=== PATIENT | female | born 1930 | race Caucasian/White ===

== ENCOUNTER 2016-08-14 11:14 | Emergency (ER) | payer MEDICARE, OTHER ==
[~2016-08-14] VITALS: Ht 157.5 cm; Wt 47.7 kg
[2016-08-14 11:26] VITALS: BP 143/67; PULSE 75; RESP 15; O2SAT 92
--- NOTE | 2016-08-14 11:32 | ED.REPORT ---
HPI-Extremity Problem Upper Date of Service Aug 14, 2016 ED Provider: Dr. Ochoa Correa MD An 86 year old female with a history of Raynaud's phenomenon presents to the ED complaining of left finger bluing that began a few days ago. Patient recently fell and broke her left forearm on 08/02 and has been wearing her current cast since 08/05. Associated symptoms include pain (3/10 now) and pale finger tips. She reports that the pain has been constant since splint application and not worsening. she denies pain with range of motion of her hands Just prior to discharge, the patient had a near-syncopal episode and reported feeling dizzy. Nursing Notes Stated Complaint: RIGHT HAND BROKEN Chief Complaint: Extremity Trauma Nursing Notes Reviewed: Yes Allergies: Coded Allergies: iodine (Verified Allergy, Severe, 08/14/16) ITCHY quinine (Verified Allergy, Severe, 08/14/16) INCREASED BLEEDING celecoxib (Verified Allergy, Unknown, diarrhea, 08/14/16) lorazepam (Verified Allergy, Unknown, 08/14/16) oxybutynin (Verified Allergy, Unknown, blurred vision, 08/14/16) General Time Seen by MD: 11:32 Chief Complaint Other (Left hand numbness) Hx Obtained From: Patient Arrived By: Walk-in Onset Occurred: Yesterday Symptom Duration: Since onset Caused by: Accidental Location: : Hand left Quality: Painful Severity: Current: Mild Severity: Maximum: Mild Associated with: Reports: Numb extremities Pertinent Negative: Pt denies other symptoms Recent Healthcare: Recent doctor visit, Recent hospitalization Past Medical History Past Medical History Raynaud's Phenomenon Past Surgical History Interstitial cyst removed Smoking History Unknown if Ever Smoker Social History Other Social History: Good social support, , Local resident Ambulatory Status Independent Review of Systems pt reports pale and tingling fingers Constitutional: Denies: Chills, Fever Musculoskeletal: Reports: Joint pain (left hand pain) Neurologic: Reports: Dizziness, Numbness, Syncope, Denies: Change LOC Complete sys rev & neg: except as marked. Respiratory: Denies: Shortness of breath Cardiovascular: Denies: Chest pain GI: Denies: Abdominal pain, Nausea, Vomiting Physical Exam Initial Vital Signs Vital Signs (First) Date Time Temp Pulse Resp B/P Pulse Ox O2 Delivery O2 Flow Rate FiO2 08/14/16 11:26 36.1 75 15 143/67 92 Room Air Initial VS: Reviewed Head / Eyes: Atraumatic, Normocephalic, PERRL Neck: Supple, Non-tender, Full range of motion Lower Extremities: Vascular intact, Neuro intact, No swelling, No tenderness Neurologic: Alert, Oriented, Nonfocal Psychiatric: Mood/affect normal, Behavior normal, Normal thought content General/Constitutional: Awake, Alert Respiratory / Chest: Atraumatic, Breath sounds NL, Breath sounds = bilat Cardiovascular: Heart rate NL, Regular rhythm, Heart sounds NL Wrist / Hand: Atraumatic, Neurologic intact HAND: Patient;s fingers are purple with a cap refill of 4 seconds. No pain with passive ROM Interpretation & Diagnostics Lab Results Interpretation Result Diagram: 08/14/16 1254 08/14/16 1254 Test 08/14/16 12:54 08/14/16 14:02 White Blood Count 5.0th/mm3 (3.8-10.1) Red Blood Count 3.20mil/mm3 (3.90-5.20) Hemoglobin 11.3g/dL (12.0-15.6) Hematocrit 33.1% (35.0-46.0) Mean Corpuscular Volume 103.4fL (81-100) Mean Corpuscular Hemoglobin 35.3pg (27.0-35.0) Mean Corpuscular Hemoglobin Concent 34.1% (32.0-37.0) Red Cell Distribution Width 11.7% (12.3-15.4) Platelet Count 246bil/L (150-400) Neutrophils (%) (Auto) 74.2% (40-74) Lymphocytes (%) (Auto) 11.5% (14-46) Monocytes (%) (Auto) 11.9% (4-12) Eosinophils (%) (Auto) 1.8% (0-5) Basophils (%) (Auto) 0.4% (0-3) Sodium Level 136mEq/L (134-144) Potassium Level 4.4mEq/L (3.5-5.2) Chloride Level 97mEq/L (97-108) Carbon Dioxide Level 26mmol/L (18-29) Blood Urea Nitrogen 13mg/dL (8-27) Creatinine 0.76mg/dL (0.57-1.00) Estimat Glomerular Filtration Rate 104mL/min (>59) Glucose Level 93mg/dL (60-99) Calcium Level 9.5mg/dL (8.5-10.1) Magnesium Level 2.2mg/dL (1.6-2.6) Total Bilirubin 0.2mg/dL (0.0-1.2) Aspartate Amino Transf (AST/SGOT) 26U/L (0-50) Alanine Aminotransferase (ALT/SGPT) 16U/L (0-32) Alkaline Phosphatase 84U/L (25-165) Troponin T < 0.010ug/L (0.0-0.011) Total Protein 7.3g/dL (6.4-8.4) Albumin 3.8g/dL (3.4-5.0) Hold Urine Received (Received) ECG Interpretation ECG Interpretation: Sinus Rhythm Rate 65 Time: 12:14 Interpreted by: ED physician ECG Interpretation: Sinus Rhythm Rate 72 No dynamic changes from inital EKG Time: 01:02 Interpreted by: ED physician X-Ray Chest Interpretation Chest Xray Interpretation: IMPRESSION: No acute disease. Chronic interstitial changes. Dictated by: Willard Curiel M.D. on 08/14/2016 at 13:31 Interpretation / Wet Read by: Interpret - Radiologist Procedures Splint Application - Fx Mgt Time: 11:50 Procedure Performed by: Leather Repairer Post-Procedure / Complications: Cap refill normal, Post splint vascular nl, Post splint neuro nl, Condition improved, Tolerated procedure well, Patient stable Re-Eval/Medical Decision Med Decision/Clinical Course Overall the patient's fingertips seem to respond mostly to a warm blanket applied to the hand. I think that her bleeding of her fingers is likely related to Raynaud's Phenomenon rather than compartment syndrome. With a warm blanket she has Refill less than 2 seconds and normal pink fingers. She has no pain with passive range of motion and only reports mild pain at 3 out of 10. Her cast was bivalved which may have improved as well. Immediately after having her cast bivalved she had a presyncopal episode that I think was most likely vasovagal as opposed to cardiogenic she received some normal saline and her symptoms normalized. Basic screening labs were obtained an EKG was nonischemic. She will be discharged. She recommended follow-up with her doctor for further evaluation of syncope. Return precautions given. Re-Evaluation/Progress #1: Time of Eval: 12:06 Post-Splint Evaluation: Cap refill < 2 seconds Patient Status: Condition improved Re-Evaluation/Progress Note: Patient is rechecked. Splint adjusted. Patient tolerates well. She is informed of her diagnosis. Cap refill is under 2 seconds and color improved. All of the patient's questions are addressed. She understands and agrees with the treatment plan. Re-Evaluation/Progress #2: Time of Eval: 12:09 Patient Status: Condition worsened Re-Evaluation/Progress Note: Patient is rechecked. Tech reports that the patient had a syncopal epsiode just prior to discharge. Re-Evaluation/Progress #3: Time of Eval: 13:38 Patient Status: Condition improved Re-Evaluation/Progress Note: Patient is rechecked. She reports pain in her left arm but her dizziness has been resolved. Re-Evaluation/Progress #4: Time of Eval: 14:07 Patient Status: Condition improved Re-Evaluation/Progress Note: Patient is rechecked. She passes the road test. She reports that she is feeling better. All of her questions are addressed and she agrees with the treatment plan to discharge. Counseled Regarding: Diagnosis, Need for follow-up, When/why to return to ED Discharge & Departure Impression: Primary Impression: Arm fracture Encounter type: initial encounter Fracture type: closed Laterality: left Qualified Code: S42.302A - Unspecified fracture of shaft of humerus, left arm, initial encounter for closed fracture Additional Impression: Near syncope Disposition: Home Discharge Condition All VS Reviewed: Yes Condition: Stable Patient Instructions: Arm Fracture in Adults (ED), Syncope (ED) Additional Instructions: Your cast has been lessened. We "bivalved" your cast. This seems to have improved your pain. Use a shoulder sling and follow up with orthopedics as planned. Return for worsening pain, purple or dusky looking fingers or other concerns. Referrals: Manish George MD (PCP) Scribe Attestation Portions of this note were transcribed by Ed Hammond. I, Dr. Correa personally performed the history, physical exam and medical decision-making; I reviewed and confirmed the accuracy of the information in the transcribed note. Signed by: Ed Hammond, 08/14/16, 1300. copies to: Manish George MD, Timothy S DO Aug 14, 2016 11:32 ED HAMMOND Aug 14, 2016 11:34
[2016-08-14 12:25] VITALS: BP 163/80; PULSE 66
[2016-08-14 12:27] VITALS: BP 108/64; PULSE 75
[2016-08-14] MEDS ORDERED: 0.9% Sodium Chloride 1,000 ML IV ONE (12:29)
[2016-08-14] MEDS ORDERED: Ondansetron 2 mg/mL 2 mL Inj IV PRN (12:30)
[2016-08-14 12:59] LABS: BASOPHILS % (AUTO) 0.4 % (0-3); EOSINOPHILS % (AUTO) 1.8 % (0-5); MONOCYTES % (AUTO) 11.9 % (4-12); Mean Corpuscular Hemoglobin 35.3 pg (27.0-35.0); Mean Corpuscular Volume 103.4 fL (81-100); NEUTROPHILS % (AUTO) 74.2 % (40-74); Platelet Count 246 bil/L (150-400)
--- NOTE | 2016-08-14 13:33 | DRSVH ---
PROCEDURE: X-RAY CHEST ONE VIEW, PORTABLE ([id number]) INDICATIONS: near syncope TECHNIQUE: One view of the chest was acquired. COMPARISON: None. FINDINGS: Surgical changes and devices: None. Lungs and pleura: No pleural effusions or pneumothorax. Lungs are clear. Chronic interstitial dise ase. Mediastinum: Mediastinal contours appear normal. Heart size is normal. Bones and chest wall: No suspicious bony lesions. Overlying soft tissues appear unremarkable. IMPRESSION: No acute disease. Chronic interstitial changes. Dictated by: Willard Curiel M.D. on 08/14/2016 at 13:31 Approved by: Willard Curiel M.D. on 08/14/2016 at 13:31
[2016-08-14 13:36] LABS: Magnesium 2.2 mg/dL (1.6-2.6); TROPONIN T < 0.010 ug/L (0.0-0.011)
[2016-08-14 14:37] VITALS: BP 108/64; PULSE 75; RESP 15; O2SAT 92
[2016-09-07] MEDS ORDERED: GLUC100020 PO (13:06)
[2016-09-07] MEDS ORDERED: NPR500T PO (13:06)
[2016-09-07] MEDS ORDERED: PENT100C9 PO (13:06)
[2016-09-07] MEDS ORDERED: ZOV800 PO (13:06)
[2016-09-07] MEDS ORDERED: AZU500 PO (13:06)
[2016-09-07] MEDS ORDERED: FERR240T5 PO (13:06)
[2016-09-07] MEDS ORDERED: PROP10TA8 PO (13:06)
[2016-09-07] MEDS ORDERED: CYCL5.5D OP (13:06)
[2016-09-07] MEDS ORDERED: VIT1TABL83 PO (13:06)
[2016-09-07] MEDS ORDERED: MELA1TAB10 PO (13:06)
[2016-09-07] MEDS ORDERED: FOLI1TAB18 PO (13:06)
[2016-09-07] MEDS ORDERED: CALC-722 PO (13:06)
[2016-09-07] MEDS ORDERED: MIRT15TA6 PO (13:06)
[2016-09-07] MEDS ORDERED: HYDR200T5 PO (13:06)
[2016-09-07] MEDS ORDERED: vitamin b6 (13:06)
== END 2016-08-14 14:38 | disposition home or self-care (01) ==
LOC: SED 11:14
DX: S42.302A Unspecified fracture of shaft of humerus, left arm, initial encounter for closed fracture (principal); R55 Syncope and collapse; W19.XXXA Unspecified fall, initial encounter; Y93.9 Activity, unspecified; Y92.9 Unspecified place or not applicable; Y99.9 Unspecified external cause status; Z88.8 Allergy status to other drugs, medicaments and biological substances
CPT/HCPCS: 36415; 71010; 80053; 82948; 83735; 84484; 85025; 93005; 96360; 99285; J7030

== ENCOUNTER 2016-09-10 07:28 | Day surgery (SDC) | payer MEDICARE, OTHER ==
[~2016-09-10] VITALS: Ht 157.5 cm; Wt 48.7 kg
[2016-09-10] VITALS (11 sets, daily range): BP systolic 120–156; BP diastolic 46–105; PULSE 58–98; RESP 10–20; O2SAT 93–100
[~2016-09-10 07:28] MED LIST: AZU500 PO; CALC-722 PO; CYCL5.5D OP; CeFAZolin 2 Gm/50 mL D5W IV Premix IV ONE; FERR240T5 PO; FOLI1TAB18 PO; GLUC100020 PO; HYDR200T5 PO; Lactated Ringer's 1,000 ML IV SCH; MELA1TAB10 PO; MIRT15TA6 PO; NPR500T PO; PENT100C9 PO; PROP10TA8 PO; VIT1TABL83 PO; ZOV800 PO; vitamin b6
[2016-09-10] MEDS ORDERED: Propofol 10,000 mCg/mL 20 mL Inj ONE (07:29)
[2016-09-10] MEDS ORDERED: Ondansetron 2 mg/mL 2 mL Inj ONE (07:29)
[2016-09-10] MEDS ORDERED: fentaNYL-PF 50 mCg/mL 2 mL Inj ONE (07:29)
[2016-09-10] MEDS ORDERED: Phenylephrine 10,000 mCg/mL Inj ONE (07:29)
[2016-09-10] MEDS ORDERED: Lidocaine PF 1% 30 mL Inj ONE (07:29)
[2016-09-10] MEDS ORDERED: Lactated Ringer's 1,000 ML IV ONE (08:14)
[2016-09-10] MEDS ORDERED: OXYC1TAB24 PO (08:40)
[2016-09-10] MEDS ORDERED: fentaNYL-PF 50 mCg/mL 2 mL Inj IVPUSH PRN (09:30)
[2016-09-10] MEDS ORDERED: HYDROmorphone 1 mg/mL Inj IVPUSH PRN (09:30)
[2016-09-10] MEDS ORDERED: hydrALAZINE 20 mg/mL Inj IVPUSH PRN (09:30)
[2016-09-10] MEDS ORDERED: Atropine 0.4 mg/mL Inj IVPUSH PRN (09:30)
[2016-09-10] MEDS ORDERED: MetoCLOpramide 5 mg/mL 2 mL Inj IVPUSH PRN (09:30)
[2016-09-10] MEDS ORDERED: Ondansetron 2 mg/mL 2 mL Inj IVPUSH PRN (09:30)
[2016-09-10] MEDS ORDERED: Labetalol 5 mg/mL 4 mL Inj IV PRN (09:30)
[2016-09-10] MEDS ORDERED: Lactated Ringer's 500 ML IV PRN (09:30)
[2016-09-10] MEDS ORDERED: Phenylephrine 10,000 mCg/mL Inj IVPUSH PRN (09:30)
[2016-09-10] MEDS ORDERED: Lactated Ringer's 1,000 ML IV SCH (09:30)
[2016-09-10] MEDS ORDERED: EPHEDrine Sulfate 50 mg/mL Inj IVPUSH PRN (09:30)
[2016-09-10] MEDS ORDERED: Dexamethasone 4 mg/mL Inj IVPUSH PRN (09:30)
--- NOTE | 2016-09-10 09:30 | PCM.HPANE ---
Patient Data Date of Service: Sep 10, 2016 Surgeon Admitting Provider: Attending Provider:Kenton Macedo MD Primary Care Physician:Manish George MD Other Provider:Salma Suarez Anesthesia Reason for Visit Right Wrist Ulnar Shaft Fracture Ht/WT & BMI Height (Feet): 5 Height (Inches): 2 Weight (Kilograms): 48.7 Body Mass Index 19.00 Allergies Coded Allergies: iodine (Verified Allergy, Severe, ITCHING, 09/10/16) ITCHY naproxen (Verified Allergy, Severe, SPASMS, 09/10/16) quinine (Verified Allergy, Severe, "HEMORRHAGING", 09/10/16) INCREASED BLEEDING celecoxib (Verified Allergy, Unknown, diarrhea, 08/14/16) gabapentin (Verified Allergy, Unknown, SPASM, 09/10/16) lorazepam (Verified Allergy, Unknown, UNKNOWN, 09/10/16) oxybutynin (Verified Allergy, Unknown, blurred vision, 08/14/16) primidone (Verified Allergy, Unknown, UNKNOWN, 09/10/16) Uncoded Allergies: ALENDRONATE (Allergy, Severe, THROAT SWELLING, 09/10/16) Past Anesthesia History Anesthesia History: Denies:: Abnormal Airway, Anesthesia Reactions, Difficult Intubation, Fam Anesthesia Reaction Diabetes History Hx Diabetes?: No MRSA MRSA: Yes (5-6 years ago on toe, arms) Medications Hypertension Medication: No Home Meds Incl Beta Radhika: Yes (TAKES FOR ESSENTIAL TREMORS) Date Beta Radhika Taken: Sep 09, 2016 Time Beta Radhika Taken: 1000 Reported Medications oxyCODONE-Acetaminophen 5-325 mg 1 Each Tablet1 Tab PO Q6 PRN For Pain #90 09/10/16 [vitamin b6] No Conflict [id number] Mg DAILY 09/07/16 Vit B Comp/C/FA/Iron/Vit E (Vitamin B Complex Tablet)1 Each Tablet1 Each PO DAILY 09/07/16 Sulfasalazine 500 Mg Tablet1,000 Mg PO BID 30 Days Ref 0 09/07/16 Cyclosporine (Restasis Multidose)0.05 % Drops5.5 Ml OP Q12H 09/07/16 Propranolol HCl 10 Mg [id number] Mg PO BID 90 Days Ref 0 09/07/16 Mirtazapine 15 Mg Tablet7.5 Mg PO HS Ref 0 09/07/16 Melatonin (Melatonin 1 mg Tablet)1 Each Tablet1 Mg PO HS Ref 0 09/07/16 Hydroxychloroquine Sulfate 200 Mg [id number] Mg PO DAILY 30 Days Ref 0 09/07/16 Glucosamine Sulfate 2Kcl (Glucosamine Sulfate)1,000 Mg Capsule1,000 Mg PO DAILY 09/07/16 Folic Acid 1 Mg Tablet1 Mg PO DAILY 30 Days 09/07/16 Ferrous Gluconate 240 Mg [id number] Mg PO TID Ref 0 09/07/16 Pentosan Polysulfate Sodium (Elmiron)100 Mg [id number] Mg PO TID 09/07/16 Calcium Citrate/Vitamin D3 (Calcium Cit-Vit D 250-200 Tab)1 Each Tablet2 Each PO DAILY 09/07/16 Acyclovir 800 Mg Mnx750 Mg PO BID Ref 0 09/07/16 Discontinued Reported Medications Naproxen 500 Mg Bjr707 Mg PO BID PRN For Pain Ref 0 09/07/16 History History of ENT Problems?: Yes HEENT History: Positive for:: Cataracts (bilateral surgery) Dysphagia (trouble with large pills, gets food stuck occasionally) Hearing Problem Denies:: Abnormal Airway Difficult Intubation Glaucoma Sinus Problem TMJ Teeth Condition: Tooth Decay Hx of Heart Problems?: Yes Cardiovascular History: Positive for:: Irregular Heartbeat (hx of svt, ) Denies:: AICD Congestive Heart Failure Heart Murmur Hypertension Pacemaker Peripheral Vascular Rheumatic Fever Thrombophlebitis Hx of Respiratory Problem?: No Respiratory History: Positive for:: Pneumonia (remote hx of ) Denies:: Asthma COPD Emphysema Oxygen Administration Tuberculosis Use of C-PAP Machine Use of Inhalers / NEBS Hx Neurologic Problems?: Yes Neurological History: Positive for:: Headaches (migraines hx (not for some time)) Denies:: Alzheimer's Disease CVA Dementia Multiple Sclerosis Parkinson's Disease (essential tremor ) Seizures TIA Hx of GI Problems?: No Gastrointestinal History: Denies:: Diverticulitis Gall Bladder Disease Gastrointestinal Bleeding Heartburn Hepatitis Hiatal Hernia Rectal Bleeding Other GI Pertinent History: hx of irritable bowel syndrome- more constipation Hx of Problems?: Yes Genitourinary History: Denies:: Kidney Stones Urinary Tract Infection Other Pertinent History: hx of interstitial cystitis Female Hx: Positive for:: Problems with Breasts? (hx of breast cysts) Denies:: Currently (HYSTERECTOMY) Skin History: Denies:: History Skin Disorders? Pressure Ulcers Hx Musculoskeletal Problems?: Yes Musculoskeletal History: Positive for:: Musculoskeletal Trauma (right ulnar fracture current admission problem) Osteoarthritis Denies:: Back Injury Degenerative Joint Joint Replacement Myasthenia Gravis Systemic Lupus Hx of Psycho/Social Problems?: No Psycho Social History: Denies:: Anxiety Hx Depression Hx Surgeries?: Yes (hysterectomy, appy) Hx Any Other Health Problems?: Yes Other History: Positive for:: Hospitalization (anemia) Denies:: Cancer Thyroid Disease (low thyroid - not on any meds) History Blood Transfusions: Positive for:: Accept Blood Products? Blood Transfusions Denies:: Blood Transfuse Reaction Hx Diabetes: No Hx Alcohol Use: NoHx Substance Use: No Smoking Status: Unknown if Ever Smoker Have You Smoked inLast 12 mo: No Stop/Bang Treated for Sleep Apnea?: No Do You Have a CPAP Machine?: No S-Snoring: Do You Snore Loudly: No T-Tired: feel tired, fatigued: Yes O-Obsered: Observed not breath: No P-Blood Pressure: treated: No B- Body Mass Index > 35 kg/m2: No A- Age over 50: Yes N- Neck Large Circumference: No G- Gender Male: No RIMMA Total Score: 2 RIMMA Risk Assessment: Low Risk, <3 Yes Risk Assessment Category Category 1A: Patient has history of documented sleep apnea, and HAS NOT received any narcotic, sedative or anesthesia administration during this stay. Category 1B: Patient has history of documented sleep apnea, and HAS received any narcotic , sedative or anesthesia administration during this stay Category 2: Patient has SUSPECTED Obstructive Sleep Apnea, and HAS received any narcotic , sedative or anesthesia administration during this stay. Category 3: Patient has SUSPECTED Obstructive Sleep Apnea and HAS NOT received narcotic, sedative or anesthesia administration during this stay. Category 4: Outpatient in Procedural Areas with known sleep apnea or who screen positive for High Risk via the STOP/BANG questionnaire. Exam Exam Vital Signs Vital Signs Date Time Temp Pulse Resp B/P Pulse Ox O2 Delivery O2 Flow Rate FiO2 09/10/16 08:16 36.3 58 14 156/60 100 Room Air General Appearance: Alert, Oriented X3, Cooperative HEENT/AIRWAY: MP 2, Neck Movement (Full), Mouth Opening (Wide) Lungs: Clear to Auscultation, Normal Air Movement Heart: Regular Rate/Rhythm, Normal S1, Normal S2 Meds/Labs/Diagnostics Admission Meds Current Medications Lactated Ringer's (Lr) 1,000 ml @ ud STK-MED ONCE IV Last administered on t 08:14; Start 09/10/16 at 08:14; Stop 09/10/16 at 08:15; Status DC Plan Impression Patient chart reviewed, patient interviewed and anesthestic plan with risks, benefits, and alternatives discussed, and informed consent obtained. NPO Status: 0600 09/10/16 ASA Physical Status: ASA2 Mod Systemic Disease Anesthetic Plan: GA Bene/Risks/Altern/Consents: Yes HP Complete Prior to Induction: Yes Gama Callahan MD Sep 10, 2016 08:33
[2016-09-10] MEDS ORDERED: Bupivacaine-MPF 0.5% 30 mL Inj INFILTRATE ONE (12:00)
[2016-09-10] MEDS ORDERED: HYDROcodone-APAP 5-325 mg Tablet PO PRN (12:40)
--- NOTE | 2016-09-10 12:55 | PCM.ANEP1 ---
Post Anesthesia Phase 1 PACU Phase 1 Assessment Date of Service: Sep 10, 2016 Vital Signs Vital Signs Date Time Temp Pulse Resp B/P Pulse Ox O2 Delivery O2 Flow Rate FiO2 09/10/16 12:50 82 10 120/55 93 Room Air 09/10/16 12:45 85 20 134/50 94 Room Air 09/10/16 12:40 86 12 126/54 93 Room Air 09/10/16 12:36 37.3 85 17 127/105 94 Room Air 09/10/16 08:16 36.3 58 14 156/60 100 Room Air Anesthetic Administered: GA Level of Alertness: Sleepy, easy to arouse [place]ST[place]'s with Equal Strength: Yes Pain: No Nausea or Vomiting: No Oxygen Delivery: Simple Mask Lungs: Normal Air Movement Gama Callahan MD Sep 10, 2016 12:55
[2016-09-10] MEDS ORDERED: HYDROmorphone 0.5 mg/0.5 mL iSecure Syringe ONE (13:02)
--- NOTE | 2016-09-10 13:12 | PCM.ANEP2 ---
Post Anesthesia Evaluation ASA/CMS Post Anesthesia Date of Service: Sep 10, 2016 VS in Patient's Normal Range?: Yes Resp Stable; Airway Patent?: Yes CV Function & Hydration Stable: Yes Mental Status Recovered?: Yes Pain control Satisfactory?: Yes N/V Control Satisfactory?: Yes Gama Callahan MD Sep 10, 2016 13:12
--- NOTE | 2016-09-10 13:57 | DRSVH ---
PROCEDURE: X-RAY RIGHT FOREARM, TWO VIEWS ([id number]) INDICATIONS: postop TECHNIQUE: 2 views of the forearm were acquired. COMPARISON: None. FINDINGS: Bones: Improved alignment status post ORIF of distal ulnar shaft fracture. Fixation plate and screws have been placed in expected position. Soft tissues: No suspicious soft tissue calcifications or masses. IMPRESSION: Improved alignment status post ORIF of distal ulnar shaft fracture. Dictated by: Kulwinder Romero [facility] Interpreted: Leeann Faust MD on 09/10/2016 at 13:56 Transcribed by: CATHERINE on 09/10/2016 at 13:56 Approved by: Leeann Faust MD, PhD on 09/10/2016 at 16:50
--- NOTE | 2016-09-10 15:29 | OP ---
[address] [address] OPERATIVE REPORT PATIENT: DORIAN MARION : 1930 MR#: [id number] ADMIT: 09/10/2016 JOB ID: [id number] DATE OF SURGERY: 09/10/2016 PREOPERATIVE DIAGNOSIS(ES): Comminuted right distal 1/3 ulnar shaft fracture, ICD-10 code S52.251D. POSTOPERATIVE DIAGNOSIS(ES): Comminuted right distal 1/3 ulnar shaft fracture, ICD-10 code S52.251D. PROCEDURE: Open reduction and internal fixation of right distal 1/3 ulnar shaft fracture, CPT code 45881. SURGEON: Kenton Macedo MD. REFINERY OPERATOR ASSISTANT: Jose R Oliva PA-C. Jose R Oliva was an integral portion of the procedure helping with maintaining exposure and reduction of the fracture. ANESTHESIA: General. ESTIMATED BLOOD LOSS: 5 mL. DRAINS: None. TOURNIQUET: Utilized. COMPLICATIONS: None. IMPLANTS: A 2.7 mm Synthes locked plate was utilized to transfix the fracture with a combination of nonlocking and locking screws, as well as a 2.4 mm interfragmentary screw as a lag screw. SPONGE AND NEEDLE COUNT: Correct. SPECIMENS: No specimen to Pathology. INDICATIONS: This is an 86-year-old female, who slipped and fell, sustaining the above injury a few weeks prior. The fracture at that time did not really show any displacement of the fracture and only a hairline fracture. On followup films in the office, it appeared that she had a small amount of comminution at this time, and there was some mild displacement of the fracture. At that time it was decided the patient would require internal fixation. DESCRIPTION OF PROCEDURE: Under adequate general anesthetic, a well-padded tourniquet was applied to the right upper extremity. Right arm was prepped and draped in sterile fashion. After appropriate time-out was called, the arm was elevated, exsanguinated, tourniquet inflated to 250 mmHg. A longitudinal incision was carefully fashioned along the subcutaneous border of the ulna. The interval between the extensor carpi ulnaris and flexor carpi ulnaris was identified. Periosteum was elevated off the edge of the fracture. Care was taken to protect the dorsal sensory branch of the ulnar nerve. The fracture was cleaned of any fibrous tissue. It was gently reduced with a small bone-holding clamp. Utilizing a 2.4 mm screw as a lag screw, this was placed across the fracture in an oblique fashion through the plate. An 8-hole 2.7 mm locked Synthes plate was then utilized. The next screw that was placed was in a nonlocking mode, compressing the plate to the bone. One screw was placed proximal and distal in a nonlocking mode. Additional screw holes were filled with locking screws after drilling and measuring, applying the appropriate length. One of the screw holes was not able to be utilized since it was right at the fracture line, and the fracture line was visible through the hole in the plate. Image intensification confirmed good position of the plate and screws in AP and lateral views. There was a small area of comminution but the lag screw was placed through the area of comminution in a lag fashion. The wound was irrigated with saline, and skin infiltrated with 0.5% plain Marcaine. The soft tissue was closed over the plate with interrupted sutures of 3-0 Vicryl. The tourniquet was released. Minimal hemostasis required. Skin reapproximated with running subcuticular suture of 4-0 Monocryl. Mastisol and Steri-Strips were applied. The patient was placed in a well-padded short-arm fiberglass splint. The patient was taken to recovery room in stable condition. Sponge and needle count correct. No complications. PLAN: The patient will be discharged to home and be seen in the office in two weeks. At that time, the Steri-Strips will be changed, the Monocryl sutures clipped flush with the skin and the patient placed in a short-arm fiberglass cast.
== END 2016-09-10 23:59 | disposition home or self-care (01) ==
LOC: SAS 07:28
PROVIDERS: ATTEND Orthopaedic Surgery
DX: S52.251A Displaced comminuted fracture of shaft of ulna, right arm, initial encounter for closed fracture (principal); K58.9 Irritable bowel syndrome, unspecified; I73.00 Raynaud's syndrome without gangrene; K21.9 Gastro-esophageal reflux disease without esophagitis; W18.30XA Fall on same level, unspecified, initial encounter; Y93.9 Activity, unspecified; Y92.9 Unspecified place or not applicable; Y99.8 Other external cause status; Z86.14 Personal history of Methicillin resistant Staphylococcus aureus infection
CPT/HCPCS: 25545; 73090; C1713; J0690; J1170; J2370; J2405; J2765; J3010; J7120

== ENCOUNTER 2016-09-24 14:53 | Day surgery (SDC) | payer MEDICARE, OTHER ==
[2016-09-24] VITALS (9 sets, daily range): BP systolic 131–160; BP diastolic 58–73; PULSE 102–109; RESP 14–18; O2SAT 95–99
[~2016-09-24] VITALS: Ht 157.5 cm; Wt 47.7 kg
[~2016-09-24 14:53] MED LIST changes: -CeFAZolin 2 Gm/50 mL D5W IV Premix IV ONE; -Lactated Ringer's 1,000 ML IV SCH; -NPR500T PO; +OXYC1TAB24 PO
[2016-09-24] MEDS ORDERED: Propofol 10,000 mCg/mL 20 mL Inj ONE (16:19)
[2016-09-24] MEDS ORDERED: Lidocaine PF 1% 30 mL Inj ONE (16:19)
[2016-09-24] MEDS ORDERED: 0.9% Sodium Chloride 1,000 ML ONE (16:32)
[2016-09-24] MEDS ORDERED: fentaNYL-PF 50 mCg/mL 2 mL Inj IVPUSH PRN ×2 (16:35→19:15)
[2016-09-24] MEDS ORDERED: 0.9% Sodium Chloride 1,000 ML IV ONE (18:00)
[2016-09-24] MEDS ORDERED: Lactated Ringer's 1,000 ML IV SCH ×2 (18:02→19:14)
--- NOTE | 2016-09-24 18:02 | PCM.HPANE ---
Patient Data Date of Service: Sep 24, 2016 Surgeon Admitting Provider: Attending Provider:Garry Pena MD Primary Care Physician:Manish George MD Other Provider: Reason for Visit Regurgitation Ht/WT & BMI Height (Feet): 5 Height (Inches): 2 Weight (Kilograms): 47.73 Body Mass Index 19.00 Allergies Coded Allergies: iodine (Verified Allergy, Severe, ITCHING, 09/10/16) ITCHY naproxen (Verified Allergy, Severe, SPASMS, 09/10/16) quinine (Verified Allergy, Severe, "HEMORRHAGING", 09/10/16) INCREASED BLEEDING celecoxib (Verified Allergy, Unknown, diarrhea, 08/14/16) gabapentin (Verified Allergy, Unknown, SPASM, 09/10/16) lorazepam (Verified Allergy, Unknown, UNKNOWN, 09/10/16) oxybutynin (Verified Allergy, Unknown, blurred vision, 08/14/16) primidone (Verified Allergy, Unknown, UNKNOWN, 09/10/16) Uncoded Allergies: ALENDRONATE (Allergy, Severe, THROAT SWELLING, 09/10/16) OXYBUTNIN (Allergy, Unknown, 09/24/16) Past Anesthesia History Anesthesia History: Denies:: Abnormal Airway, Anesthesia Reactions, Difficult Intubation, Fam Anesthesia Reaction, Fam Malignant Hypertherm, Malignant Hyperthermia Diabetes History Hx Diabetes?: No MRSA MRSA: Yes Medications Home Meds Incl Beta Radhika: No Reported Medications oxyCODONE-Acetaminophen 5-325 mg 1 Each Tablet1 Tab PO Q6 PRN For Pain #90 09/10/16 [vitamin b6] No Conflict [id number] Mg DAILY 09/07/16 Vit B Comp/C/FA/Iron/Vit E (Vitamin B Complex Tablet)1 Each Tablet1 Each PO DAILY 09/07/16 Sulfasalazine 500 Mg Tablet1,000 Mg PO BID 30 Days Ref 0 09/07/16 Cyclosporine (Restasis Multidose)0.05 % Drops5.5 Ml OP Q12H 09/07/16 Propranolol HCl 10 Mg [id number] Mg PO BID 90 Days Ref 0 09/07/16 Mirtazapine 15 Mg Tablet7.5 Mg PO HS Ref 0 09/07/16 Melatonin (Melatonin 1 mg Tablet)1 Each Tablet1 Mg PO HS Ref 0 09/07/16 Hydroxychloroquine Sulfate 200 Mg [id number] Mg PO DAILY 30 Days Ref 0 09/07/16 Glucosamine Sulfate 2Kcl (Glucosamine Sulfate)1,000 Mg Capsule1,000 Mg PO DAILY 09/07/16 Folic Acid 1 Mg Tablet1 Mg PO DAILY 30 Days 09/07/16 Ferrous Gluconate 240 Mg [id number] Mg PO TID Ref 0 09/07/16 Pentosan Polysulfate Sodium (Elmiron)100 Mg [id number] Mg PO TID 09/07/16 Calcium Citrate/Vitamin D3 (Calcium Cit-Vit D 250-200 Tab)1 Each Tablet2 Each PO DAILY 09/07/16 Acyclovir 800 Mg [id number] Mg PO BID Ref 0 09/07/16 History History of ENT Problems?: Yes HEENT History: Positive for:: Cataracts (bilateral surgery) Dysphagia Hearing Problem Denies:: Abnormal Airway Difficult Intubation Sinus Problem TMJ Hx of Heart Problems?: Yes Cardiovascular History: Positive for:: Irregular Heartbeat (hx of svt, ) Denies:: AICD Atrial Fibrillation Chest Pain Congestive Heart Failure Heart Murmur Hypertension Pacemaker Rheumatic Fever Thrombophlebitis Valvular Heart Disease Other Cardiac History: HX OF SVT Hx of Respiratory Problem?: Yes Respiratory History: Positive for:: Pneumonia Denies:: Asthma COPD Cough Emphysema Hemoptysis Oxygen Administration Tuberculosis Use of C-PAP Machine Hx Neurologic Problems?: Yes Neurological History: Positive for:: Headaches (migraines hx (not for some time)) Denies:: Alzheimer's Disease CVA Dementia Multiple Sclerosis Parkinson's Disease (essential tremor ) Seizures Hx of GI Problems?: Yes Gastrointestinal History: Denies:: Cirrhosis Diverticulitis Gall Bladder Disease Gastroesphageal Reflux Gastrointestinal Bleeding Heartburn Hepatitis Hiatal Hernia Liver Disease Rectal Bleeding Other GI Pertinent History: HX OF WATERMELON STOMACH Hx of Problems?: Yes Genitourinary History: Denies:: Kidney Stones Urinary Tract Infection Female Hx: Positive for:: Problems with Breasts? (hx of breast cysts) Denies:: Currently Skin History: Denies:: History Skin Disorders? Pressure Ulcers Hx Musculoskeletal Problems?: Yes Musculoskeletal History: Positive for:: Musculoskeletal Trauma (right ulnar fracture current admission problem) Denies:: Back Injury Degenerative Joint Fibromyalgia Joint Replacement Systemic Lupus Hx of Psycho/Social Problems?: No Psycho Social History: Denies:: Anxiety Hx Depression Hx Surgeries?: Yes (HYSTO, R ARM FIXATION, APPY) Hx Any Other Health Problems?: Yes Other History: Positive for:: Hospitalization (anemia) Denies:: Cancer Thyroid Disease (low thyroid - not on any meds) History Blood Transfusions: Positive for:: Blood Transfusions Denies:: Blood Transfuse Reaction Hx Diabetes: No Hx Alcohol Use: NoHx Substance Use: No Smoking Status: Unknown if Ever Smoker Have You Smoked inLast 12 mo: No Stop/Bang Treated for Sleep Apnea?: No Do You Have a CPAP Machine?: No S-Snoring: Do You Snore Loudly: No T-Tired: feel tired, fatigued: No O-Obsered: Observed not breath: No P-Blood Pressure: treated: No B- Body Mass Index > 35 kg/m2: No A- Age over 50: Yes N- Neck Large Circumference: No G- Gender Male: No RIMMA Total Score: 1 RIMMA Risk Assessment: Low Risk, <3 Yes Risk Assessment Category Category 1A: Patient has history of documented sleep apnea, and HAS NOT received any narcotic, sedative or anesthesia administration during this stay. Category 1B: Patient has history of documented sleep apnea, and HAS received any narcotic , sedative or anesthesia administration during this stay Category 2: Patient has SUSPECTED Obstructive Sleep Apnea, and HAS received any narcotic , sedative or anesthesia administration during this stay. Category 3: Patient has SUSPECTED Obstructive Sleep Apnea and HAS NOT received narcotic, sedative or anesthesia administration during this stay. Category 4: Outpatient in Procedural Areas with known sleep apnea or who screen positive for High Risk via the STOP/BANG questionnaire. Exam Exam Vital Signs Vital Signs Date Time Temp Pulse Resp B/P Pulse Ox O2 Delivery O2 Flow Rate FiO2 09/24/16 16:44 36.1 109 16 140/71 98 Room Air 09/24/16 15:20 36.1 109 16 140/71 98 Room Air General Appearance: Alert, Oriented X3, Cooperative, No Acute Distress HEENT/AIRWAY: MP 2 Lungs: Normal Air Movement Heart: Exam Unremarkable Meds/Labs/Diagnostics Admission Meds Current Medications Sodium Chloride (Normal Saline) 1,000 ml @ ud STK-MED ONCE .ROUTE Last administered on 09/24/16t 16:54; Start 09/24/16 at 16:32; Stop 09/24/16 at 16:34 ; Status DC Plan Impression Patient chart reviewed, patient interviewed and anesthestic plan with risks, benefits, and alternatives discussed, and informed consent obtained. NPO Status: 0600 09/10/16 ASA Physical Status: ASA2 Mod Systemic Disease Anesthetic Plan: GA (at increased risk for aspiration will intubate) Bene/Risks/Altern/Consents: Yes (discussed with patient and s/o) HP Complete Prior to Induction: Yes Candido Ivory MD Sep 24, 2016 17:56
[2016-09-24] MEDS ORDERED: MetoCLOpramide 5 mg/mL 2 mL Inj IVPUSH PRN ×2 (18:05→19:15)
[2016-09-24] MEDS ORDERED: Ondansetron 2 mg/mL 2 mL Inj IVPUSH PRN ×2 (18:05→19:15)
[2016-09-24] MEDS ORDERED: Lactated Ringer's 500 ML IV PRN (19:14)
[2016-09-24] MEDS ORDERED: EPHEDrine Sulfate 50 mg/mL Inj IVPUSH PRN (19:15)
[2016-09-24] MEDS ORDERED: Phenylephrine 10,000 mCg/mL Inj IVPUSH PRN (19:15)
[2016-09-24] MEDS ORDERED: HYDROmorphone 1 mg/mL Inj IVPUSH PRN (19:15)
[2016-09-24] MEDS ORDERED: Atropine 0.4 mg/mL Inj IVPUSH PRN (19:15)
[2016-09-24] MEDS ORDERED: Labetalol 5 mg/mL 4 mL Inj IV PRN (19:15)
[2016-09-24] MEDS ORDERED: hydrALAZINE 20 mg/mL Inj IVPUSH PRN (19:15)
[2016-09-24] MEDS ORDERED: Dexamethasone 4 mg/mL Inj IVPUSH PRN (19:15)
--- NOTE | 2016-09-24 19:15 | PCM.ANEP1 ---
Post Anesthesia Phase 1 PACU Phase 1 Assessment Date of Service: Sep 24, 2016 Vital Signs Vital Signs Date Time Temp Pulse Resp B/P Pulse Ox O2 Delivery O2 Flow Rate FiO2 09/24/16 16:44 36.1 109 16 140/71 98 Room Air 09/24/16 15:20 36.1 109 16 140/71 98 Room Air Level of Alertness: Sleepy, easy to arouse Pain: No Nausea or Vomiting: No Oxygen Delivery: Simple Mask Lungs: Normal Air Movement Candido Ivory MD Sep 24, 2016 19:15
--- NOTE | 2016-09-24 19:23 | CONS ---
[address] [address] CONSULTATION REPORT PATIENT: DORIAN MARION : 1930 MR#: [id number] ADMIT: 09/24/2016 JOB ID: [id number] DATE OF SERVICE: 09/24/2016 GASTROENTEROLOGY CONSULTATION: REASON FOR CONSULTATION: Food impaction. HISTORY OF PRESENT ILLNESS: A pleasant 86-year-old female with history of Raynaud phenomenon, interstitial cyst removed in the past, with a broken left forearm on August 02, 2016, presents here for a food impaction. The patient states she ate eggs and sausage two days ago and since that point in time has been unable to swallow or eat anything. The patient states she had an EGD in the past with unknown results and had a colonoscopy five years ago which is normal. I have no records. The patient denies rectal bleeding, hematemesis, abdominal pain, change in bowel habits, or unintentional weight loss. The patient denies family history of colon cancer, inflammatory bowel disease, or celiac disease. The patient went to [facility] and was then brought to the emergency department for her food impaction and was brought here to the GI suite. PAST MEDICAL HISTORY: As stated above. PAST SURGICAL HISTORY: As stated above. MEDICATIONS: As an outpatient: Unknown. ALLERGIES: IODINE, QUINIDINE, CELECOXIB, LORAZEPAM, OXYBUTYNIN. SOCIAL HISTORY: . Local resident. Unknown for smoking, alcohol, or drugs. FAMILY HISTORY: Negative for colon cancer, inflammatory bowel disease, celiac disease. REVIEW OF SYSTEMS: The patient denies headache, blurred vision. Positive for nausea and vomiting. No chest pain, shortness of breath, abdominal pain, skin rash, or joint pain. PHYSICAL EXAMINATION: Vital signs upon presentation: Temperature 36.1, pulse 109, blood pressure 140/71, respiratory rate 16, saturating 98% on room air. General: Head: No scars. Anicteric. Throat supple. Lungs: Clear to auscultation bilaterally. Cardiovascular: Regular rhythm and rate. Abdomen: Soft, nondistended, nontender. Normal bowel sounds. Extremities: There is no cyanosis, clubbing, or edema. LABORATORY: Last set of labs done on April 06, 2016, show a white count 2.3, hemoglobin 12.5, hematocrit 37, platelet count 216. Sodium 131, potassium 4.2, chloride 92, bicarbonate 26, BUN 15, creatinine 0.7, glucose 91, calcium 9.4, magnesium 2.2, total bili 0.2. AST 30, ALT 18, alk phos 83. ASSESSMENT: An 86-year-old female with history of Raynaud phenomenon and a right forearm fracture presents here for a food impaction after eating eggs and sausage two days ago. RECOMMENDATIONS: 1. NPO. 2. Upper endoscopy for removal of food impaction to be performed today.
--- NOTE | 2016-09-24 19:34 | PCM.ANEP2 ---
Post Anesthesia Evaluation ASA/CMS Post Anesthesia Date of Service: Sep 24, 2016 VS in Patient's Normal Range?: Yes Resp Stable; Airway Patent?: Yes CV Function & Hydration Stable: Yes Mental Status Recovered?: Yes Pain control Satisfactory?: Yes N/V Control Satisfactory?: Yes Candido Ivory MD Sep 24, 2016 19:34
--- NOTE | 2016-09-24 21:00 | ENDO ---
[address] [address] ENDOSCOPY PROCEDURE PATIENT: DORIAN MARION : 1930 MR#: [id number] ADMIT: 09/24/2016 JOB ID: [id number] TYPE OF OPERATION: Esophagogastroduodenoscopy. PREOPERATIVE DIAGNOSIS: Food impaction. POSTOPERATIVE DIAGNOSIS: Food seen at 23 cm from the incisors. ANESTHESIA: Fentanyl 50 mcg IV administered. COMPLICATIONS: None. BLOOD LOSS: None. DESCRIPTION OF PROCEDURE: After risks and benefits explained to the patient, informed was obtained. After anesthesia administered, an upper endoscope was inserted into the mouth. Basically, we saw food that was only up high, seen at 23 cm from the incisors. It was decided that the procedure should be aborted. FINDINGS: Upon entering the esophagus, there was food starting at 23 cm from the incisors. At this point in time, it was decided that the procedure should be aborted and the patient should be intubated with anesthesia. IMPRESSIONS: 1. Food seen starting at 23 cm from the incisors. 2. Procedure aborted. RECOMMENDATIONS: Repeat EGD with anesthesia.
--- NOTE | 2016-09-25 05:42 | ENDO ---
[address] [address] ENDOSCOPY PROCEDURE PATIENT: DORIAN MARION : 1930 MR#: [id number] ADMIT: 09/24/2016 JOB ID: [id number] DATE OF SERVICE: 09/24/2016 TITLE OF PROCEDURE: Esophagogastroduodenoscopy with biopsy and removal of food impaction. PREOPERATIVE DIAGNOSIS: Food impaction. POSTOPERATIVE DIAGNOSES: 1. There was food seen starting at 23 cm from the incisors which was removed by [employer] and tripod in which a large sausage was seen in the lower esophagus and it was removed. 2. Benign midline ring sized stricture was seen at 30 cm from the incisors, status post biopsy. 3. Mild nonerosive gastritis. 4. 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 ANESTHESIA: Monitored anesthesia care. COMPLICATIONS: None. BLOOD LOSS: Minimal. DESCRIPTION OF PROCEDURE: After risks and benefits explained to the patient, informed consent was obtained. After anesthesia administered, upper endoscope was then inserted into the mouth, intubating the esophagus, stomach, and second portion of duodenum. Mucosa carefully examined. After the procedure done, the scope withdrawn and procedure terminated. FINDINGS: Upon entering the esophagus, there was food starting seen at 23 cm from the incisors which was all removed by [employer] and biopsy forceps. At the end of the lower esophagus, there was a large sausage that was not chewed which caused the obstruction. Also, a benign ring sized stricture was seen at 30 cm from the incisors which was biopsied. Z-line located 40 cm from incisors. Upon entering the stomach there was mild nonerosive gastritis that was seen. There was also a watermelon type appearance at the antrum. Retroflexion showed no masses on retroflexion. Duodenal bulb, first and second portions were normal. IMPRESSIONS: 1. Food seen starting at 23 cm from the incisors, removed by [employer] and tripod in which a large, uneaten sausage was seen at the distal esophagus which was removed. 2. Large ring sized stricture that was seen at 30 cm from the incisors, status post biopsy. 3. Mild nonerosive gastritis. 4. Watermelon type appearance of the antrum. RECOMMENDATION: 1. Protonix 40 mg by mouth twice a day. 2. Carafate 1 g by mouth a day. 3. Please encourage the patient to chew her food thoroughly. 4. Await biopsy results.
[2016-09-25] MEDS ORDERED: Lactated Ringer's 1,000 ML IV ONE (06:00)
--- NOTE | 2016-09-29 12:24 | PATH ---
SURGICAL PATHOLOGY Attending Physician:Garry Pena MD CASE STATUS: Signed Out PATIENT NAME: DORIAN MARION PID: [id number] : 1930 DATE COLLECTED:09/24/2016 00:00 SPECIMEN: Esophagus, Biopsy CLINICAL HISTORY: Stricture at 30 Biopsy FINAL DIAGNOSIS: ESOPHAGEAL BIOPSY AT 30 CM: SQUAMOUS EPITHELIUM WITH MARKED REACTIVE CHANGES AND CHRONIC INFLAMMATION (SEE MICROSCOPIC DESCRIPTION). ICD10 codeK20.9 NOTE: As part of a routine bottle house quality control technician, Dr. Ricco Fajardo has also reviewed this case and agrees with the diagnosis. GROSS DESCRIPTION: The specimen is received in one formalin filled container labeled with the patient's name, sublabeled "stricture at 30" and consists of 2 portions of tissue which aggregate to 0.3 x 0.3 x 0.2 CM. The specimen is entirely submitted in one cassette. 09/27/2016 DAC MICRO DESCRIPTION: Sections are from the esophagus stated to be from the 30 cm level. The sections contain squamous epithelium only with no definite submucosa identified. Multiple sections are prepared through the entire block, and they are all similar. There is marked reactive proliferation of the basilar portion of the epithelium, and in association with this there are chronic inflammatory cells within the epithelium. Again, no subepithelial tissue is identified. The changes are felt to be those of a marked reactive process with chronic inflammation, and would be consistent with chronic esophagitis; however, one cannot rule out the possibility of another process in the subepithelial region. ICD-9 CODES: CPT CODES: 1: 30727 Electronically Signed Out Wilfredo Tapia MD [facility] [address], [place] [address] Technical component performed at [facility], [address], [place], [address]
== END 2016-09-24 23:59 ==
LOC: SED 16:12 → END 16:18
PROVIDERS: ATTEND Internal Medicine Gastroenterology
DX: T18.128A Food in esophagus causing other injury, initial encounter (principal); Z53.09 Procedure and treatment not carried out because of other contraindication; K29.60 Other gastritis without bleeding; K22.2 Esophageal obstruction; X58.XXXA Exposure to other specified factors, initial encounter; Y93.89 Activity, other specified; Y92.9 Unspecified place or not applicable; Y99.9 Unspecified external cause status
CPT/HCPCS: 43239; 43247; 88305; 99153; G0500; J2250; J3010; J7030

== ENCOUNTER 2016-12-08 09:28 | Observation (INO) | payer MEDICARE, OTHER ==
[~2016-12-08] VITALS: Ht 157.5 cm; Wt 45.1 kg
[2016-12-08] VITALS (11 sets, daily range): BP systolic 109–164; BP diastolic 56–85; PULSE 84–100; RESP 13–18; O2SAT 93–100
--- NOTE | 2016-12-08 09:35 | ED.REPORT ---
HPI-General Illness Date of Service December 08, 2016 ED Provider: The patient is an 86 year old female with history if esophageal stricture with previous blockages requiring surgical intervention, and Raynaud's phenomenon, who presents to the emergency department complaining of dysphagia that began yesterday around 1200 after she took her glucosamine pill. Her symptoms have worsened since onset and since 5 PM last night she has been unable to swallow liquids. If she tries to drink anything it comes back up within 15 minutes. She also reports mild chest discomfort, nausea, and a mild headache. She had similar symptoms in September of this year. She had an EGD that showed and esophagea stricture at 30 cm. The pathology report from stricture shows chronic esophagitis. If September, initial EGD was stopped due to the level of obstuction and concern for airway compromise. Anethesthesia was asked to help with intubation prior to completing esophageal disimpaction. Nursing Notes Stated Complaint: ESLOPHAGIAL BLOCKAGE Chief Complaint: ENT & Mouth Nursing Notes Reviewed: Yes Allergies: Coded Allergies: iodine (Verified Allergy, Severe, ITCHING, 12/08/16) ITCHY naproxen (Verified Allergy, Severe, SPASMS, 12/08/16) quinine (Verified Allergy, Severe, "HEMORRHAGING", 12/08/16) INCREASED BLEEDING celecoxib (Verified Allergy, Unknown, diarrhea, 12/08/16) gabapentin (Verified Allergy, Unknown, SPASM, 12/08/16) lorazepam (Verified Allergy, Unknown, UNKNOWN, 12/08/16) oxybutynin (Verified Allergy, Unknown, blurred vision, 12/08/16) primidone (Verified Allergy, Unknown, UNKNOWN, 12/08/16) Uncoded Allergies: ALENDRONATE (Allergy, Severe, THROAT SWELLING, 09/10/16) OXYBUTNIN (Allergy, Unknown, 09/24/16) Scheduled ([vitamin b6]) 100 MG DAILY Acyclovir (Acyclovir) 800 Mg Tab 800 MG PO BID Calcium Citrate/Vitamin D3 (Calcium Cit-Vit D 250-200 Tab) 1 Each Tablet 2 EACH PO DAILY Cyclosporine (Restasis Multidose) 0.05 % Drops 5.5 ML OP Q12H Ferrous Gluconate (Ferrous Gluconate) 240 Mg Tablet 480 MG PO TID Folic Acid (Folic Acid) 1 Mg Tablet 1 MG PO DAILY Glucosamine Sulfate 2Kcl (Glucosamine Sulfate) 1,000 Mg Capsule 1,000 MG PO DAILY Hydroxychloroquine Sulfate (Hydroxychloroquine Sulfate) 200 Mg Tablet 400 MG PO DAILY Melatonin (Melatonin 1 mg Tablet) 1 Each Tablet 1 MG PO HS Mirtazapine (Mirtazapine) 15 Mg Tablet 7.5 MG PO HS Pentosan Polysulfate Sodium (Elmiron) 100 Mg Capsule 100 MG PO TID Propranolol HCl (Propranolol HCl) 10 Mg Tablet 10 MG PO BID Sulfasalazine (Sulfasalazine) 500 Mg Tablet 1,000 MG PO BID Vit B Comp/C/FA/Iron/Vit E (Vitamin B Complex Tablet) 1 Each Tablet 1 EACH PO DAILY Scheduled PRN oxyCODONE-Acetaminophen 5-325 mg (oxyCODONE-Acetaminophen 5-325 mg) 1 Each Tablet 1 TAB PO Q6 PRN PRN For Pain General Time Seen by MD: 09:34 Chief Complaint Other (esophageal blockage) Hx Obtained From: Patient Arrived By: Walk-in Sudden in Onset?: Yes Onset Occurred: 17 - 20 hours ago Symptom Duration: Since onset Quality: Painful Severity: Current: Moderate Severity: Maximum: Moderate Recent Healthcare: No recent hospitalization, Recent doctor visit Similar Sx Previous: Yes Past Medical History Past Medical History Raynaud's Phenomenon Esophageal stricture Past Surgical History Interstitial cyst removed EGD Family History Noncontributory Smoking History Unknown if Ever Smoker Social History Other Social History: Good social support, , Local resident Ambulatory Status Independent Review of Systems +esophageal blockage Full Review of Systems Cardiovascular: Reports: Chest pain GI: Reports: Dysphagia, Nausea, Vomiting Neurologic: Reports: Headache Complete sys rev & neg: except as marked. Physical Exam Vital Signs Vital Signs Date Time Temp Pulse Resp B/P Pulse Ox O2 Delivery O2 Flow Rate FiO2 12/08/16 13:36 100 13 164/74 96 Room Air 12/08/16 09:34 36.8 110 18 158/85 96 Room Air Initial VS: Reviewed Head / Eyes: Atraumatic, Normocephalic, PERRL Neck: Supple, Non-tender, Full range of motion Respiratory: Breath sounds normal, Clear to auscultation, No respiratory distress Lymphatic: No lymphadenopathy Extremities: Vascular intact, Neuro intact, No swelling, No tenderness Skin: Warm, Dry, No cyanosis Neurologic: Alert, Oriented, Nonfocal Psychiatric: Mood/affect normal, Behavior normal, Normal thought content General/Constitutional: Awake, Alert, Cooperative ENT: Atraumatic, Airway patent, Mucous membranes moist Cardiovascular: Heart rate NL, Regular rhythm, Cap refill not delayed, Peripheral circulation NL, Pulses = bilaterally Heart Sounds / Murmur: Positive: Systolic murmur present.. (IV/) Abdomen: Atraumatic, Soft, Non-tender, No guarding, No rebound, BS normoactive , No distention, No hernia, No palpable mass, No pulsatile mass Interpretation & Diagnostics Lab Results Interpretation Test 12/08/16 10:00 Hold Purple Top Tube Received (Received) Hold Blue Top Tube Received (Received) Hold Floyd Top Tube Received (Received) Hold Kwan Top Tube Received (Received) Lab Results Interpretation: inital Xray suggets impation again close to chords Re-Eval/Medical Decision Med Decision/Clinical Course Dr Alvarenga concerned with airway control and inablility to remove obstruction. Would like ENT to be involved. Will discuss with anesthesia and gen surg, ENT if needed. Anticipate EGD shortly Source of Hx: Old records Time of Eval: 11:01 Re-Evaluation/Progress Note: Discussed plan for GI consult. Consultation #1: Referral / Consult Name: Nguyễn Alvarenga MD Requested Call at: 11:01 Call Returned at: 11:43 Note: Spoke with the on-call engine head repairer. He would like a head and neck CT. We agreed to start with a soft tissue neck x-ray. Consultation #2: Referral / Consult Name: Mason Sheppard MD Consulted With: Anesthesia Call Returned at: 12:36 Note: Will help with procedure. Consultation #3: Referral / Consult Name: Bora Manning MD Consulted With: Surgeon Call Returned at: 12:44 Note: Willing to help with procedure if needed. Consultation #4: Referral / Consult Name: Burke Abarca MD Consulted With: ENT Call Returned at: 13:01 Note: There are 3 partners in the clinic today and they will be immediately available and come to the OR within a few minutes if needed. They are all aware and willing to help. Consultation #5: Referral / Consult Name: Nguyễn Alvarenga MD Call Returned at: 13:05 Directory Carrier: Requested OR Note: Discussed consults with surgery, anesthesia, and ENT. Dr. Alvarenga is willing to take the patient for surgery. Counseled Regarding: Diagnosis, Lab results, Need for admission Discharge & Departure Primary Impression: Esophageal foreign body Encounter type: initial encounter Qualified Code: T18.108A - Unspecified foreign body in esophagus causing other injury, initial encounter Additional Impression: History of esophageal stricture Disposition: ADMITTED TO HOSPITAL Discharge Condition All VS Reviewed: Yes Condition: Stable Referrals: Manish George MD (PCP) Scribe Attestation Portions of this note were transcribed by Jesi Zamora. I, Dr. Aranda personally performed the history, physical exam and medical decision-making; I reviewed and confirmed the accuracy of the information in the transcribed note. Signed by: Patsy Garcia, 12/08/2016 at 1330. copies to: Manish George MD, Shawna L MD December 08, 2016 09:35 Jesi Zamora December 08, 2016 09:45
[2016-12-08] MEDS ORDERED: 0.9% Sodium Chloride 1,000 ML IV ONE (10:40)
--- NOTE | 2016-12-08 12:20 | DRSVH ---
PROCEDURE: X-RAY NECK SOFT TISSUE ([id number]) INDICATIONS: esophageal obstruction TECHNIQUE: 2 views of the neck were acquired. COMPARISON: None. FINDINGS: Airway: The airway appears patent. Soft tissues: Prevertebral soft tissues are normal in thickness. The epiglottis and aryepiglottic f olds appear normal. No soft tissue gas. No radiopaque foreign bodies are evident. There is aortic atherosclerosis. Bones: No suspicious bony lesions. Severe degenerative changes of the cervical spine are present. There is grade 1 to grade 2 anterolisthesis of C4 on C5. Visualized cervical spine is normally align ed. IMPRESSION: 1. The airway is widely patent. No radiopaque foreign bodies are evident. 2. Severe degenerative changes of the cervical spine. Dictated by: Sandeep Stephens M.D. on 12/08/2016 at 11:16 Approved by: Sandeep Stephens M.D. on 12/08/2016 at 11:18
[2016-12-08] MEDS ORDERED: Propofol 10,000 mCg/mL 20 mL Inj ONE (13:49)
[2016-12-08] MEDS ORDERED: Succinylcholine Chloride 20 mg/mL 5 mL Inj ONE (13:49)
[2016-12-08] MEDS ORDERED: Ondansetron 2 mg/mL 2 mL Inj ONE (13:49)
--- NOTE | 2016-12-08 14:39 | PCM.HPANE ---
Patient Data Date of Service: December 08, 2016 Surgeon Admitting Provider: Attending Provider:Nguyễn Alvarenga MD Primary Care Physician:Manish George MD Other Provider: Reason for Visit Esophageal Blockage Ht/WT & BMI Height (Feet): 5 Height (Inches): 2 Weight (Kilograms): 46.82 Body Mass Index Allergies Coded Allergies: iodine (Verified Allergy, Severe, ITCHING, 12/08/16) ITCHY naproxen (Verified Allergy, Severe, SPASMS, 12/08/16) quinine (Verified Allergy, Severe, "HEMORRHAGING", 12/08/16) INCREASED BLEEDING celecoxib (Verified Allergy, Unknown, diarrhea, 12/08/16) gabapentin (Verified Allergy, Unknown, SPASM, 12/08/16) lorazepam (Verified Allergy, Unknown, UNKNOWN, 12/08/16) oxybutynin (Verified Allergy, Unknown, blurred vision, 12/08/16) primidone (Verified Allergy, Unknown, UNKNOWN, 12/08/16) Uncoded Allergies: ALENDRONATE (Allergy, Severe, THROAT SWELLING, 09/10/16) OXYBUTNIN (Allergy, Unknown, 09/24/16) Past Anesthesia History Anesthesia History: Denies:: Abnormal Airway, Anesthesia Reactions, Difficult Intubation, Fam Anesthesia Reaction, Fam Malignant Hypertherm, Malignant Hyperthermia Diabetes History Hx Diabetes?: No MRSA MRSA: Yes Medications Reported Medications oxyCODONE-Acetaminophen 5-325 mg 1 Each Tablet1 Tab PO Q6 PRN For Pain #90 09/10/16 [vitamin b6] No Conflict [id number] Mg DAILY 09/07/16 Vit B Comp/C/FA/Iron/Vit E (Vitamin B Complex Tablet)1 Each Tablet1 Each PO DAILY 09/07/16 Sulfasalazine 500 Mg Tablet1,000 Mg PO BID 30 Days Ref 0 09/07/16 Cyclosporine (Restasis Multidose)0.05 % Drops5.5 Ml OP Q12H 09/07/16 Propranolol HCl 10 Mg [id number] Mg PO BID 90 Days Ref 0 09/07/16 Mirtazapine 15 Mg Tablet7.5 Mg PO HS Ref 0 09/07/16 Melatonin (Melatonin 1 mg Tablet)1 Each Tablet1 Mg PO HS Ref 0 09/07/16 Hydroxychloroquine Sulfate 200 Mg [id number] Mg PO DAILY 30 Days Ref 0 09/07/16 Glucosamine Sulfate 2Kcl (Glucosamine Sulfate)1,000 Mg Capsule1,000 Mg PO DAILY 09/07/16 Folic Acid 1 Mg Tablet1 Mg PO DAILY 30 Days 09/07/16 Ferrous Gluconate 240 Mg [id number] Mg PO TID Ref 0 09/07/16 Pentosan Polysulfate Sodium (Elmiron)100 Mg [id number] Mg PO TID 09/07/16 Calcium Citrate/Vitamin D3 (Calcium Cit-Vit D 250-200 Tab)1 Each Tablet2 Each PO DAILY 09/07/16 Acyclovir 800 Mg [id number] Mg PO BID Ref 0 09/07/16 History History of ENT Problems?: Yes HEENT History: Positive for:: Cataracts (bilateral surgery) Dysphagia Hearing Problem Denies:: Abnormal Airway Difficult Intubation Sinus Problem TMJ Denture Type: None Teeth Condition: Tooth Decay Hx of Heart Problems?: Yes Cardiovascular History: Positive for:: Irregular Heartbeat (hx of svt, ) Denies:: AICD Atrial Fibrillation Chest Pain Congestive Heart Failure Heart Murmur Hypertension Pacemaker Rheumatic Fever Thrombophlebitis Valvular Heart Disease Hx of Respiratory Problem?: Yes Respiratory History: Positive for:: Pneumonia Denies:: Asthma COPD Cough Emphysema Hemoptysis Oxygen Administration Tuberculosis Use of C-PAP Machine Hx Neurologic Problems?: Yes Neurological History: Positive for:: Headaches (migraines hx (not for some time)) Denies:: Alzheimer's Disease CVA Dementia Multiple Sclerosis Parkinson's Disease (essential tremor ) Seizures Hx of GI Problems?: Yes Hx of Problems?: Yes Genitourinary History: Denies:: Kidney Stones Urinary Tract Infection Female Hx: Positive for:: Problems with Breasts? (hx of breast cysts) Denies:: Currently Skin History: Denies:: History Skin Disorders? Pressure Ulcers Hx Musculoskeletal Problems?: Yes Musculoskeletal History: Positive for:: Musculoskeletal Trauma (right ulnar fracture current admission problem) Denies:: Back Injury Degenerative Joint Joint Replacement Systemic Lupus Hx of Psycho/Social Problems?: No Psycho Social History: Denies:: Anxiety Hx Depression Hx Surgeries?: Yes (HYSTO, R ARM FIXATION, APPY) Hx Any Other Health Problems?: Yes Other History: Positive for:: Hospitalization (anemia) Denies:: Cancer Thyroid Disease (low thyroid - not on any meds) History Blood Transfusions: Positive for:: Blood Transfusions Denies:: Blood Transfuse Reaction Hx Diabetes: No Hx Alcohol Use: NoHx Substance Use: No Smoking Status: Unknown if Ever Smoker Have You Smoked inLast 12 mo: No Stop/Bang Treated for Sleep Apnea?: No Do You Have a CPAP Machine?: No S-Snoring: Do You Snore Loudly: No T-Tired: feel tired, fatigued: No O-Obsered: Observed not breath: No P-Blood Pressure: treated: No B- Body Mass Index > 35 kg/m2: No A- Age over 50: Yes N- Neck Large Circumference: No G- Gender Male: No RIMMA Risk Assessment: Low Risk, <3 Yes Risk Assessment Category Category 1A: Patient has history of documented sleep apnea, and HAS NOT received any narcotic, sedative or anesthesia administration during this stay. Category 1B: Patient has history of documented sleep apnea, and HAS received any narcotic , sedative or anesthesia administration during this stay Category 2: Patient has SUSPECTED Obstructive Sleep Apnea, and HAS received any narcotic , sedative or anesthesia administration during this stay. Category 3: Patient has SUSPECTED Obstructive Sleep Apnea and HAS NOT received narcotic, sedative or anesthesia administration during this stay. Category 4: Outpatient in Procedural Areas with known sleep apnea or who screen positive for High Risk via the STOP/BANG questionnaire. Exam Exam Vital Signs Vital Signs Date Time Temp Pulse Resp B/P Pulse Ox O2 Delivery O2 Flow Rate FiO2 12/08/16 13:36 100 13 164/74 96 Room Air 12/08/16 09:34 36.8 110 18 158/85 96 Room Air General Appearance: Alert, Oriented X3, Cooperative, No Acute Distress HEENT/AIRWAY: MP 2 Lungs: Clear to Auscultation, Normal Air Movement Heart: Exam Unremarkable, Regular Rate/Rhythm, No Murmurs/Rubs/Gallops Meds/Labs/Diagnostics Admission Meds Current Medications Sodium Chloride (Normal Saline) 1,000 ml @ 0 mls/hr Q0M ONCE IV Last administered on 12/08/16t 10:51; Start 12/08/16 at 10:40; Stop 12/08/16 at 10:41; Status DC Labs Test 12/08/16 10:00 Hold Purple Top Tube Received (Received) Hold Blue Top Tube Received (Received) Hold Ingalls Top Tube Received (Received) Hold Kwan Top Tube Received (Received) Plan Impression Patient chart reviewed, patient interviewed and anesthestic plan with risks, benefits, and alternatives discussed, and informed consent obtained. ASA Physical Status: ASA2 Mod Systemic Disease Anesthetic Plan: GA Bene/Risks/Altern/Consents: Yes HP Complete Prior to Induction: Yes Jon Pringle MD December 08, 2016 14:39
--- NOTE | 2016-12-08 17:04 | PCM.ENDEGD ---
EGD Date of Service: December 08, 2016 Physician Nguyễn Alvarenga MD Pre Procedure Diagnosis: Food impaction Post Procedure Dx & Findings: Successful food disimpaction Procedure Esophagogastroduodenoscopy PROCEDURE IN DETAIL: After proper sedation, Olympus video endoscope was inserted into patient's mouth and esophagus was successfully intubated. Scope introduced esophagus. As soon as we entered the esophagus, patient had food material. We insufflated to see if there was any room to maneuver the scope around and there was limited room. We started to use the net to pick the food apart and retrieved the food material piece by piece. We used 5 nets. Rocael and rat tooth forcepts used as well. We try water to break the fluid which we did. In between the endoscope intubation, we had to use OG tube for suctioning to get the water and small pieces of food out of the way. Eventually got to a mucosal narrowing around 40 cm from the incisors. Using a rat-tooth forcep, we started breaking this food piece by piece. There was a hiatal hernia 4 cm to 5 cm and after breaking the food apart, we injected water and the food probe and the food material within its the stomach. No ulcerations nor bleeding no mucosal tear noted. The mucosa was overall intact. We entered the stomach successfully. Scope was withdrawn and the procedure was terminated. Impression Successful food disimpaction Narrowing at 40 cm an hiatal hernia about 4 cm - 5 cm. Modifier 22 requested. Procedure took 2 hours. Recommendation Keep overnight due to airway issue. I spoke with the hospitalist. IV Protonix 40 twice a day Protonix 40 mg he will twice a day Follow up with Dr. Pena in the GI clinic in about a week or 2 weeks. Clear liquid diet tomorrow morning Would not advance her diet to pure until patient is seen by Dr. Pena. During the endoscopy, we saw fibrous food material as well as meat. Also will not take large pills such as glucosamine or vitamins. Presedation Assessment Risks and Benefits Informed consent was obtained from the patient after all risks and benefits including but not limited to drug reaction, infection, pain, bleeding, perforation, as well as alternatives were discussed. Patient monitoring Continuous pulse oximetry, cardiac monitoring, blood pressure monitoring, IV access, and oxygen at 2L per nasal cannula. Complications There were no periprocedural complications identified. Post Procedure Plan Post Procedure Recommendations 1. Restrict activities today. 2. Resume normal activities in the morning. 3. Resume medications. 4. GERD behavioral modification: - Avoid fatty, acidic, spicy, large meals - Do not lie down after meals - Do not eat or drink anything for at least 2 1/2 hours before going to bed at night - Discontinue tobacco and alcohol - Decrease or avoid caffeine - Avoid chocolate and mints - Decrease weight - Avoid aspirin and non steroidal anti-inflammatory agents (NSAID) such as Aleve, Advil, Mobic, Naproxen, Ibuprofen, etc 5. Add proton pump inhibitor. Take 30 minutes before 1st meal of the day. 6. Patient informed of normal post procedure side effects as bloating, drowsiness, blood streaking in the stool 7. If gastric biopsy reveal H.pylori, continue with appropriate treatment 8. If small bowel biopsy reveals celiac, continue with appropriate treatment 9. Please don't hesitate to call me with any questions Nguyễn Alvarenga MD December 08, 2016 17:04
--- NOTE | 2016-12-08 17:08 | PCM.CHPMED ---
Subjective Date of Service: December 08, 2016 Primary Physician: Admitting Physician: Primary Care Physician: Manish George MD Attending Physician: Nguyễn Alvarenga MD Chief Complaint: Chief Complaint: Dysphagia History of Present Illness: GI consult note 86-year-old female with a history of Raynaud phenomenon and esophageal stricture with food impaction s/p disimpaction in September of this year, presented to the emergency department this morning due to dysphagia that began yesterday around noon. Patient states that she took glucosamine pill which was difficult to swallow and since this time she has had worsening of symptoms since yesterday evening. Initially she was unable to eat solids but now is unable to swallow liquids as they are regurgitated 15 minutes after consumption. She states that she has mild chest discomfort, mild headache, and nausea. No vomiting, fever, chills, or hematemesis. Previous strictures or at 30 cm but disimpaction from today reveal the esophageal stricture 40 cm. During procedure there is a large amount of mildly digested food impacted in the distal esophagus that was removed per the EGD note in the chart. During the procedures noted that there is significant edema in the esophagus and airway. After discussion between GI and endoscopy, as well as the hospitalist as determined the patient should be admitted for 23 hour observation to ensure no loss of airway. Review of Systems: Per history of present illness PMH Past Medical History Raynaud's Phenomenon Esophageal stricture Hx Any Other Health Problems?: YesHx Diabetes: No Surgical History Interstitial cyst removed EGD Home Medications Acyclovir (Acyclovir) 800 Mg Tab 800 MG PO BID Calcium Citrate/Vitamin D3 (Calcium Cit-Vit D 250-200 Tab) 1 Each Tablet 2 EACH PO DAILY Cyclosporine (Restasis Multidose) 0.05 % Drops 5.5 ML OP Q12H Ferrous Gluconate (Ferrous Gluconate) 240 Mg Tablet 480 MG PO TID Folic Acid (Folic Acid) 1 Mg Tablet 1 MG PO DAILY Glucosamine Sulfate 2Kcl (Glucosamine Sulfate) 1,000 Mg Capsule 1,000 MG PO DAILY Hydroxychloroquine Sulfate (Hydroxychloroquine Sulfate) 200 Mg Tablet 400 MG PO DAILY Melatonin (Melatonin 1 mg Tablet) 1 Each Tablet 1 MG PO HS Mirtazapine (Mirtazapine) 15 Mg Tablet 7.5 MG PO HS Pentosan Polysulfate Sodium (Elmiron) 100 Mg Capsule 100 MG PO TID Propranolol HCl (Propranolol HCl) 10 Mg Tablet 10 MG PO BID Sulfasalazine (Sulfasalazine) 500 Mg Tablet 1,000 MG PO BID Vit B Comp/C/FA/Iron/Vit E (Vitamin B Complex Tablet) 1 Each Tablet 1 EACH PO DAILY oxyCODONE-Acetaminophen 5-325 mg (oxyCODONE-Acetaminophen 5-325 mg) 1 Each Tablet 1 TAB PO Q6 PRN PRN For Pain Allergies: Coded Allergies: iodine (Verified Allergy, Severe, ITCHING, 12/08/16) ITCHY naproxen (Verified Allergy, Severe, SPASMS, 12/08/16) quinine (Verified Allergy, Severe, "HEMORRHAGING", 12/08/16) INCREASED BLEEDING celecoxib (Verified Allergy, Unknown, diarrhea, 12/08/16) gabapentin (Verified Allergy, Unknown, SPASM, 12/08/16) lorazepam (Verified Allergy, Unknown, UNKNOWN, 12/08/16) oxybutynin (Verified Allergy, Unknown, blurred vision, 12/08/16) primidone (Verified Allergy, Unknown, UNKNOWN, 12/08/16) Uncoded Allergies: ALENDRONATE (Allergy, Severe, THROAT SWELLING, 09/10/16) OXYBUTNIN (Allergy, Unknown, 09/24/16) Family History Family History Unable to obtain Social History Hx Alcohol Use: NoHx Substance Use: NoHx Tobacco Use: No Smoking Status: Unknown if Ever Smoker Living Arrangement: Alone (boyfriend does not live with her) Exam Vital Signs Vital Sign - Last Date Time Temp Pulse Resp B/P Pulse Ox O2 Delivery O2 Flow Rate FiO2 12/08/16 14:42 37.1 98 14 157/82 98 Room Air General: Alert, Oriented X3 Eyes: PERRLA Mouth: Mucous Membr Moist/[place] Neck: Other (nontender) Chest & Lungs: Clear to auscultation & percussion Cardiovascular: Regular Rate/Rhythm, Murmur (3/6 systolic) Abdomen: Non-tender, Non-distended Neurological: Normal Speech, Other (alert and oriented) Lab and Diagnostics X-Rays, CTs and MRIs Soft tissue neck x-ray 1. The airway is widely patent. No radiopaque foreign bodies are evident. 2. Severe degenerative changes of the cervical spine. Dictated by: Sandeep Stephens M.D. on 12/08/2016 at 11:16 Assessment & Plan Assessment Assessment: 86-year-old female with known esophageal strictures who presents with impacted food bolus in the distal esophagus with prolonged, 2 hour EGD removal. Her significant swelling noted during EGD but was apparently much less than her previous disimpaction in September where she required intubation. There was a narrowing of the esophagus at 40 cm long hiatal hernia about 4-5 cm. Requests admit [facility] to assure airway stability prior to discharge, anticipated tomorrow. Recommendations post EGD as below and are also listed in the EGD procedure note by Dr. Alvarenga. This case was discussed with hospitalist team and the patient will be admitted to [facility]. Recommendation: Keep overnight due to airway issue. I spoke with the hospitalist. IV Protonix 40 twice a day Protonix 40 mg he will twice a day Follow up with Dr. Pena in the GI clinic in about a week or 2 weeks. Clear liquid diet tomorrow morning Would not advance her diet to pure until patient is seen by Dr. Pena. During the endoscopy, we saw fibrous food material as well as meat. Also will not take large pills such as glucosamine or vitamins. I saw and examined the patient with the resident. Agree with above. Problems: Krzysztof Oliva DO December 08, 2016 17:08 Nguyễn Alvarenga MD December 09, 2016 09:04
[2016-12-08] MEDS ORDERED: Lactated Ringer's 1,000 ML IV SCH (17:13)
[2016-12-08] MEDS ORDERED: Lactated Ringer's 500 ML IV PRN (17:13)
[2016-12-08] MEDS ORDERED: hydrALAZINE 20 mg/mL Inj IVPUSH PRN (17:15)
[2016-12-08] MEDS ORDERED: Ondansetron 2 mg/mL 2 mL Inj IVPUSH PRN ×2 (17:15→20:10)
[2016-12-08] MEDS ORDERED: fentaNYL-PF 50 mCg/mL 2 mL Inj IVPUSH PRN (17:15)
[2016-12-08] MEDS ORDERED: Phenylephrine 10,000 mCg/mL Inj IVPUSH PRN (17:15)
[2016-12-08] MEDS ORDERED: HYDROmorphone 1 mg/mL Inj IVPUSH PRN (17:15)
[2016-12-08] MEDS ORDERED: Labetalol 5 mg/mL 4 mL Inj IV PRN (17:15)
[2016-12-08] MEDS ORDERED: EPHEDrine Sulfate 50 mg/mL Inj IVPUSH PRN (17:15)
[2016-12-08] MEDS ORDERED: Dexamethasone 4 mg/mL Inj IVPUSH PRN (17:15)
[2016-12-08] MEDS ORDERED: MetoCLOpramide 5 mg/mL 2 mL Inj IVPUSH PRN (17:15)
[2016-12-08] MEDS: Lactated Ringer's 1,000 ML IV SCH ×2 (18:57→21:53)
[2016-12-08] MEDS ORDERED: Alum-Mag Hydrox-Simeth 30 mL Suspension PO PRN (20:10)
[2016-12-08] MEDS ORDERED: Polyethylene Glycol (PEG) 17 Gm Powder PO PRN (20:10)
--- NOTE | 2016-12-08 20:13 | NUR ---
Case Management: IRISH explained to patient at 1999, all questions answered. Signed original placed in chart, copy given to patient. Pt informed me that she did have Medicare Part D so I did provide her with "How Medicare Covers Self-Administered Drugs Given in Hospital Outpatient Settings". Luz Gar, RN
--- NOTE | 2016-12-08 21:41 | PCM.ANEP1 ---
Post Anesthesia Phase 1 PACU Phase 1 Assessment Date of Service: December 08, 2016 Vital Signs Vital Signs Date Time Temp Pulse Resp B/P Pulse Ox O2 Delivery O2 Flow Rate FiO2 12/08/16 17:55 88 15 145/65 100 12/08/16 17:40 85 16 152/68 100 12/08/16 17:25 88 15 126/56 100 Room Air 12/08/16 17:20 84 14 118/78 100 Room Air 12/08/16 17:15 85 17 124/64 99 Room Air 12/08/16 17:10 37.0 88 15 109/85 97 Room Air 12/08/16 14:42 37.1 98 14 157/82 98 Room Air Anesthetic Administered: GA Level of Alertness: Sleepy, easy to arouse Pain: No Nausea or Vomiting: No Cardiovascular Function and Hy: Yes Oxygen Delivery: Room Air Lungs: Clear to Auscultation, Normal Air Movement Complications: No Jon Pringle MD December 08, 2016 21:41
[2016-12-08] MEDS: Pantoprazole 4 mg/mL 10 mL Inj IVPUSH SCH (21:53)
[2016-12-08] MEDS ORDERED: HYDROmorphone 0.5 mg/0.5 mL iSecure Syringe IVPUSH ONE (23:05)
--- NOTE | 2016-12-08 23:17 | PCM.HPMED ---
Subjective Date of Service December 08, 2016 Primary Provider: Admitting Physician: Nguyễn Alvarenga MD Primary Care Physician: Manish George MD Attending Physician: Nguyễn Alvarenga MD Chief Complaint: Dysphagia History of Present Illness: 86-year-old female with a history of Raynaud's, Sjogren's, and esophageal stricture with history of recurrent food impaction presented to the ED this morning for complaints of dysphagia that began yesterday around noon. Patient states that she took a large glucosamine pill which was difficult to swallow and has caused her to have a hard time swallowing since then. Initially she was unable to eat solids but now is unable to swallow liquids as they are regurgitated 15 minutes after consumption. She reports that she is not allowed to eat meat, but still does it occasionally. She then underwent an EGD today for food disimpaction. During procedure there was a large amount of mildly digested food impacted in the distal esophagus that was removed per the EGD note in the chart. There was noted to be significant edema in the esophagus and airway during the procedure. After discussion between GI and endoscopy, as well as the hospitalist as determined the patient should be admitted for 23 hour observation to ensure no loss of airway. Currently patient denies any CP, SOB, CHASE, Abd pain, or n/v. Review of Systems: 12 Pt ROS neg except as stated in the HPI Allergies Coded Allergies: iodine (Verified Allergy, Severe, ITCHING, 12/08/16) ITCHY naproxen (Verified Allergy, Severe, SPASMS, 12/08/16) quinine (Verified Allergy, Severe, "HEMORRHAGING", 12/08/16) INCREASED BLEEDING celecoxib (Verified Allergy, Unknown, diarrhea, 12/08/16) gabapentin (Verified Allergy, Unknown, SPASM, 12/08/16) lorazepam (Verified Allergy, Unknown, UNKNOWN, 12/08/16) oxybutynin (Verified Allergy, Unknown, blurred vision, 12/08/16) primidone (Verified Allergy, Unknown, UNKNOWN, 12/08/16) Uncoded Allergies: ALENDRONATE (Allergy, Severe, THROAT SWELLING, 09/10/16) OXYBUTNIN (Allergy, Unknown, 09/24/16) Home Medications Acyclovir (Acyclovir) 800 Mg Tab 800 MG PO BID Calcium Citrate/Vitamin D3 (Calcium Cit-Vit D 250-200 Tab) 1 Each Tablet 2 EACH PO DAILY Cyclosporine (Restasis Multidose) 0.05 % Drops 5.5 ML OP Q12H Ferrous Gluconate (Ferrous Gluconate) 240 Mg Tablet 480 MG PO TID Folic Acid (Folic Acid) 1 Mg Tablet 1 MG PO DAILY Glucosamine Sulfate 2Kcl (Glucosamine Sulfate) 1,000 Mg Capsule 1,000 MG PO DAILY Hydroxychloroquine Sulfate (Hydroxychloroquine Sulfate) 200 Mg Tablet 400 MG PO DAILY Melatonin (Melatonin 1 mg Tablet) 1 Each Tablet 1 MG PO HS Mirtazapine (Mirtazapine) 15 Mg Tablet 7.5 MG PO HS Pentosan Polysulfate Sodium (Elmiron) 100 Mg Capsule 100 MG PO TID Propranolol HCl (Propranolol HCl) 10 Mg Tablet 10 MG PO BID Sulfasalazine (Sulfasalazine) 500 Mg Tablet 1,000 MG PO BID Vit B Comp/C/FA/Iron/Vit E (Vitamin B Complex Tablet) 1 Each Tablet 1 EACH PO DAILY oxyCODONE-Acetaminophen 5-325 mg (oxyCODONE-Acetaminophen 5-325 mg) 1 Each Tablet 1 TAB PO Q6 PRN PRN For Pain PMH Raynaud's Phenomenon Sjogren's disease Ophthalmic Herpes Zoster Esophageal strictures Multiple distal extremity fractures Vulvodynia Interstitial Cystitis Surgical History Cyst removal EGD Social History Hx Alcohol Use: No Hx Substance Use: No Hx Tobacco Use: No Smoking Status: Unknown if Ever Smoker Living Arrangement: Alone Exam Vital Signs Vital Sign - Last Date Time Temp Pulse Resp B/P Pulse Ox O2 Delivery O2 Flow Rate FiO2 12/08/16 21:47 36.9 91 16 137/60 93 Room Air Exam General: Alert, Oriented X3, Elderly female in NAD Eyes: PERRLA, EOMI, Mouth: Mucous Membr Moist/[place] Neck: Soft, NT Chest & Lungs: Clear to auscultation & percussion, normal resp effort Cardiovascular: RRR with soft systolic murmur, pulses intact and equal Abdomen: Non-tender, Non-distended, Soft, NABS Neurological: Normal Speech, No focal weakness Skin: Warm, Dry, Intact Psych: Appropriate mood and affect, linear thought process Lab and Diagnostics Result Diagram: 12/08/162039 X-Rays, CTs and MRIs Soft tissue neck x-ray 1. The airway is widely patent. No radiopaque foreign bodies are evident. 2. Severe degenerative changes of the cervical spine. Dictated by: Sandeep Stephens M.D. on 12/08/2016 at 11:16 Assessment & Plan 86-year-old female with known esophageal strictures who presents with impacted food bolus in the distal esophagus, s/p EGD for disimpaction. Per report, there was significant swelling noted during EGD but was apparently much less than her previous disimpaction in September where she required intubation. There was a narrowing of the esophagus at 40 cm long hiatal hernia about 4-5 cm. She is admitted overnight for observation of airway. 1. Esophageal Strictures and Edema, Present on Admission She is s/p EGD for disimpaction. Currently stable and VSS. Continue to monitor airway closely overnight. NPO status until evaluated by GI in the AM. IV Protonix 40mg BID Recommend Swallow Eval and education 2. 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 She generally takes Oxycodone at home. Will use IV Dilaudid 0.5mg prn pain. 3. Interstitial Cystitis, POA Resume patient's Elmiron once Med Reconciliation is done 4. Raynaud's Phenomenon, POA Resume patient's home medication when Med Rec is done 5. Sjogren's, POA Resume Home meds when appropriate Tylenol prn fever/pain Zofran prn nausea Code status: DO NOT RESUSCITATE/DO NOT INTUBATE Disposition: Patient is admitted under observation status but expected length of stay less than 2 midnight, due to risk of adverse events, medical complexity , and risk of decompensation. Pain Evaluation: Adequate Pain Control VTE Prophylaxis: Sub-Q Enoxaparin, SCDs Resuscitation Status: DNR/DNI:Do Not Resuscitate/Intubate Attending Statement The patient was seen and examined together with Dr. Bran on 12/08 and I agree with the history, exam and plan as outlined in the note above. Evangelist Bran DO December 08, 2016 23:17 Johnnie Jackson MD December 09, 2016 01:41
[2016-12-09 02:58] LABS: BASOPHILS % (AUTO) 0.3 % (0-3); EOSINOPHILS % (AUTO) 0 % (0-5); MONOCYTES % (AUTO) 10.4 % (4-12); Mean Corpuscular Hemoglobin 34.6 pg (27.0-35.0); Mean Corpuscular Volume 106.5 fL (81-100); NEUTROPHILS % (AUTO) 75.4 % (40-74); Platelet Count 196 bil/L (150-400)
[2016-12-09 04:04] VITALS: BP 132/58; PULSE 90; RESP 16; O2SAT 95
--- NOTE | 2016-12-09 05:46 | NUR ---
Pain Pt c/o throat soreness at HS, aggravated by talking or swallowing, but denied labeling it "pain". Reported pain at 10/10 to vulva at approx. 2200, states "It feels like a needle being stabbed into me; this isn't an uncommon occurrence for me, normally I take my oxycodone and it goes away." paged for orders; one time dose of 0.5mg Dilaudid IV given. Pt reports relief upon reassessment; sleeping throughout rest of shift, no further complaints. Admit documentation and med rec completed. VSS. Tele SR 90s with PACs.
[2016-12-09 06:12] VITALS: PULSE 91
[2016-12-09 08:00] VITALS: PULSE 86
[2016-12-09] MEDS: Pantoprazole 4 mg/mL 10 mL Inj IVPUSH SCH (09:44)
[2016-12-09 09:52] VITALS: BP 134/53; PULSE 104; RESP 16; O2SAT 96
--- NOTE | 2016-12-09 10:11 | PCM.PNMED ---
Subjective Date of Service December 09, 2016 Subjective Patient did well post endoscopy and overnight with only complaints his morning being related to a sore throat. Patient is starting with clear liquids and understands that she should not progress to even pured prior to seeing Dr. Pena as an outpatient. Patient denies difficulty breathing overnight, does have a chronic cough, but otherwise negative review of systems Exam Vital Signs Vital Sign - Last Date Time Temp Pulse Resp B/P Pulse Ox O2 Delivery O2 Flow Rate FiO2 12/09/16 09:52 36.7 104 16 134/53 96 Room Air Intake and Output 12/08/16 12/08/16 12/09/16 Cumulative From/Thru 14:59 22:59 06:59 12/08/16 09:34 - 12/09/16 06:32 Intake Total 1000 ml 400 ml 800 ml 2200 ml Output Total 300 ml 1150 ml 1450 ml Balance 700 ml 400 ml -350 ml 750 ml Intake Oral 0 ml 0 ml IV Total 1000 ml 400 ml 800 ml 2200 ml Output Urine Total 300 ml 1150 ml 1450 ml Exam General: Awake and alert and conversive HEENT: Mucous membranes very dry as are the lips; pupils are reactive; no icterus Cardio: Murmur 3 out of 6 heard best the superior portions of the sternum bilaterally Respiratory: CTA bilaterally Abdomen: No noticeable organomegaly, nontender, nondistended Extremities: No edema Psych: Appropriate mood and affect Neuro: CN II through XII intact although patient does have some difficulty swallowing on command; sensation intact throughout IVs and Medications Medications Reviewed: Medications were reviewed in detail Lab and Diagnostics Result Diagram: 12/09/16 0245 12/09/16 0245 X-Rays, CTs and MRIs Soft tissue neck x-ray 1. The airway is widely patent. No radiopaque foreign bodies are evident. 2. Severe degenerative changes of the cervical spine. Dictated by: Sandeep Stephens M.D. on 12/08/2016 at 11:16 Assessment & Plan Assessment/plan A 6-year-old female with known esophageal strictures and impaction who underwent endoscopy with removal of impaction yesterday evening with notable esophageal edema and concern for possible compromised airway was extubated postprocedure. Patient did very well overnight with no complaints of difficulty breathing or becoming short of breath. She is okay to discharge with respect to GI. Instructions were given that the patient should remain on a full liquid puree diet until follow-up with Dr. Pena in 2 weeks. She should also started on Protonix 40 mg twice a day after discharge. She should also avoid consumption of large pills or unnecessary pills, taking only her medications as prescribed. She should also strictly avoid meat in her diet. I have seen and examined the patient with the resident and agree with above. Thank you for allowing us to participate in the care of this patient. VTE Prophylaxis: Sub-Q Enoxaparin, SCDs Resuscitation Status: DNR/DNI:Do Not Resuscitate/Intubate Krzysztof Oliva DO December 09, 2016 10:11 Nguyễn Alvarenga MD December 10, 2016 16:33
[2016-12-09] MEDS ORDERED: oxyCODONE-Acetamin 5-325 mg Tablet PO PRN (10:50)
--- NOTE | 2016-12-09 10:55 | PCM.DIMED ---
Discharge Instructions Date of Service December 09, 2016 Dates of Hospitalization December 08, 2016 at 18:27 Discharge Diagnosis Discharge Diagnosis 1. Esophageal Strictures food impaction, improved with esophageal dilation and impaction removal. 2. Chronic Pain syndrome, stable 3. Interstitial Cystitis, stable 4. Raynaud's Phenomenon, stable 5. Sjogren's, stable Diet Other (liquids only until follow-up with Dr. Callahan in 2 weeks) Activity No restrictions Call your provider Shortness of breath, Chest pain, Other (vomiting her food regurgitation) Patient Instructions Follow-up Provider: Garry Pena MD Follow-up with PCP in: 2 weeks Prem Monroy MD December 09, 2016 10:55
--- NOTE | 2016-12-09 10:59 | PCM.DC.MED ---
Discharge Summary Date of Service December 09, 2016 Dates of Hospitalization Date of Hospital Admission December 08, 2016 at 18:27 Date of Discharge: December 09, 2016 Providers: Admitting Physician: Nguyễn Alvarenga MD Primary Care Physician: Manish George MD Attending Physician: Nguyễn Alvarenga MD Diagnosis at Time of Discharge Diagnosis at Time of Discharge 1. Esophageal Strictures food impaction, improved with esophageal dilation and impaction removal. 2. Chronic Pain syndrome, stable 3. Interstitial Cystitis, stable 4. Raynaud's Phenomenon, stable 5. Sjogren's, stable Consultations Dr. Alvarenga, gastroenterology Procedures XRay, CTs & MRIs Soft tissue neck x-ray 1. The airway is widely patent. No radiopaque foreign bodies are evident. 2. Severe degenerative changes of the cervical spine. Dictated by: Sandeep Stephens M.D. on 12/08/2016 at 11:16 Invasive Procedures Upper endoscopy on December 08 with esophageal meat impaction removal and stricture dilation. No complications. Brief History 86-year-old female with a history of Raynaud's, Sjogren's, and esophageal stricture with history of recurrent food impaction presented to the ED this morning for complaints of dysphagia that began yesterday around noon. Patient states that she took a large glucosamine pill which was difficult to swallow and has caused her to have a hard time swallowing since then. Initially she was unable to eat solids but now is unable to swallow liquids as they are regurgitated 15 minutes after consumption. She reports that she is not allowed to eat meat, but still does it occasionally. She then underwent an EGD today for food disimpaction. During procedure there was a large amount of mildly digested food impacted in the distal esophagus that was removed per the EGD note in the chart. There was noted to be significant edema in the esophagus and airway during the procedure. After discussion between GI and endoscopy, as well as the hospitalist as determined the patient should be admitted for 23 hour observation to ensure no loss of airway. Currently patient denies any CP, SOB, CHASE, Abd pain, or n/v. Hospital Course # Esophageal food impaction and stricture. POA. The patient was taken endoscopy and had disimpaction as well as stricture dilatation. Postprocedure she did well. She is able tolerate a full liquid diet on the day of discharge. # Raynaud's Phenomenon, POA. This remained stable throughout hospitalization # Sjogren's disease, POA. This remained stable throughout the hospitalization # Vulvodynia chronic pain syndrome, POA. This remained stable throughout hospitalization # Interstitial Cystitis, POA. This remained stable throughout hospitalization Exam Vital Signs (Last) Date Time Temp Pulse Resp B/P Pulse Ox O2 Delivery O2 Flow Rate FiO2 12/09/16 09:52 36.7 104 16 134/53 96 Room Air Exam Patient was seen and examined on the day of discharge Test 12/08/16 10:00 12/09/16 02:45 Hold Purple Top Tube Received (Received) Hold Blue Top Tube Received (Received) Hold [place] Top Tube Received (Received) Hold Kwan Top Tube Received (Received) White Blood Count 3.7th/mm3 (3.8-10.1) Red Blood Count 2.31mil/mm3 (3.90-5.20) Hemoglobin 8.0g/dL (12.0-15.6) Hematocrit 24.6% (35.0-46.0) Mean Corpuscular Volume 106.5fL (81-100) Mean Corpuscular Hemoglobin 34.6pg (27.0-35.0) Mean Corpuscular Hemoglobin Concent 32.5% (32.0-37.0) Red Cell Distribution Width 13.8% (12.3-15.4) Platelet Count 196bil/L (150-400) Neutrophils (%) (Auto) 75.4% (40-74) Lymphocytes (%) (Auto) 13.6% (14-46) Monocytes (%) (Auto) 10.4% (4-12) Eosinophils (%) (Auto) 0% (0-5) Basophils (%) (Auto) 0.3% (0-3) Sodium Level 139mEq/L (134-144) Potassium Level 4.4mEq/L (3.5-5.2) Chloride Level 102mEq/L (97-108) Carbon Dioxide Level 23mmol/L (18-29) Blood Urea Nitrogen 16mg/dL (8-27) Creatinine 0.69mg/dL (0.57-1.00) Estimat Glomerular Filtration Rate 116mL/min (>59) Glucose Level 76mg/dL (60-99) Calcium Level 8.3mg/dL (8.5-10.1) Discharge Medications Discharge Medications ([vitamin b6]) 100 MG DAILY (Reported) Acyclovir (Acyclovir) 800 Mg Tab 800 MG PO BID (Reported) Calcium Citrate/Vitamin D3 (Calcium Cit-Vit D 250-200 Tab) 1 Each Tablet 2 EACH PO DAILY (Reported) Cyclosporine (Restasis Multidose) 0.05 % Drops 5.5 ML OP Q12H (Reported) Ferrous Gluconate (Ferrous Gluconate) 240 Mg Tablet 480 MG PO TID (Reported) Folic Acid (Folic Acid) 1 Mg Tablet 1 MG PO DAILY (Reported) Glucosamine Sulfate 2Kcl (Glucosamine Sulfate) 1,000 Mg Capsule 1,000 MG PO DAILY (Reported) Hydroxychloroquine Sulfate (Hydroxychloroquine Sulfate) 200 Mg Tablet 400 MG PO DAILY (Reported) Melatonin (Melatonin 1 mg Tablet) 1 Each Tablet 1 MG PO HS (Reported) Mirtazapine (Mirtazapine) 15 Mg Tablet 7.5 MG PO HS (Reported) Pentosan Polysulfate Sodium (Elmiron) 100 Mg Capsule 100 MG PO TID (Reported) Propranolol HCl (Propranolol HCl) 10 Mg Tablet 10 MG PO BID (Reported) Sulfasalazine (Sulfasalazine) 500 Mg Tablet 1,000 MG PO BID (Reported) Vit B Comp/C/FA/Iron/Vit E (Vitamin B Complex Tablet) 1 Each Tablet 1 EACH PO DAILY (Reported) As needed oxyCODONE-Acetaminophen 5-325 mg (oxyCODONE-Acetaminophen 5-325 mg) 1 Each Tablet 1 TAB PO Q6 PRN PRN For Pain (Reported) Followup Plan Disposition: 35 minutes Discharge Diet: Other (liquids only until follow-up with Dr. Callahan in 2 weeks) Discharge Activity: No restrictions Follow-up Provider: Garry Pena MD Follow-up with PCP in: 2 weeks Prem Monroy MD December 09, 2016 10:59
--- NOTE | 2016-12-09 11:06 | NUR ---
Evaluation completed. Please go to "Notes" then click on "Assessments and Notes" (bottom left corner of screen). Then select appropriate discipline tab on top of screen.
--- NOTE | 2016-12-09 12:03 | NUR ---
Social Work: Initial Assessment/Discharge D: Per EMR review, pt is an 86 year old female admitted for Esophageal Blockage. Pt is Medicare with [employer]; pt has no LTC insurance or VA benefits. PCP is Manish George MD. NOK is Burke Saba, . Advanced directives complete and on file. Readmit score is moderate 4/8. Pt discussed in am rounds. Pt is medically stable for discharge home. EMR reviewed; no anticipated needs. LAB ASST met with pt at bedside. Sw role explained and contact info provided. See initial assessment. Pt lives in [place], [facility]. Pt is I with ADLs at baseline and lives in a single story home with 2 steps to enter. Pt has a history with but cannot remember which company. Pt states she has no concerns about d/c home and that her s/o Burke will provide transport. She is requesting LAB ASST call him to notify of discharge. LAB ASST spoke with pt's s/o who states he will be here by 1:00pm to pickup the pt. A: Pt who is I at baseline. P: Pt to discharge home with no social work needs; Pt's s/o to transport. PANFILO Vila Addendum: 12/09/16 at 1221 by GILLES BRADLEY Amended: Links added.
--- NOTE | 2016-12-09 13:57 | NUR ---
Discharge Pt left with significant other at 1345. All belongings except cane were taken. Cane has construction crew member it and at the front end web designer. Will call pt to inform her that her cane was left. All discharge instructions gone over and understood including full liquid diet list. Follow up apt made and understood. GI MD rounded when pt was leaving. 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 IV and tele removed.
== END 2016-12-09 13:50 | disposition home or self-care (01) ==
LOC: SED 09:28 → END 13:37 → PCC 18:27
PROVIDERS: ADMIT Internal Medicine; ATTEND Internal Medicine
DX: T18.108A Unspecified foreign body in esophagus causing other injury, initial encounter (principal); K22.2 Esophageal obstruction; K44.9 Diaphragmatic hernia without obstruction or gangrene; R13.19 Other dysphagia; G89.29 Other chronic pain; N30.10 Interstitial cystitis (chronic) without hematuria; I73.00 Raynaud's syndrome without gangrene; M35.00 Sjogren syndrome, unspecified; I49.8 Other specified cardiac arrhythmias; Z90.710 Acquired absence of both cervix and uterus; Z88.8 Allergy status to other drugs, medicaments and biological substances
CPT/HCPCS: 36415; 43247; 70360; 80048; 85025; 92610; 96361; 96374; 99285; G0378; G8996; G8997; G8998; J0330; J1170; J1650; J2405; J7030; J7120

== ENCOUNTER 2017-03-30 12:33 | Emergency (ER) | payer MEDICARE, OTHER ==
[~2017-03-30] VITALS: Ht 157.5 cm; Wt 45.5 kg
[2017-03-30 12:39] VITALS: BP 157/68; PULSE 72; RESP 16; O2SAT 91; O2SAT 96
--- NOTE | 2017-03-30 12:53 | ED.REPORT ---
HPI-Abd Pain F 40 and Over Date of Service Mar 30, 2017 ED Provider: History of Present Illness: sore thraot and pain in right side. pain in right side started first present for 2 days. no vomiting unable to eat because throat and mouth hurts so bad. Dr Baker is primary care. Appointment on 04/06. sore on lip appeared tuesday. Seen at Urgent care and strep is negative Nursing Notes Stated Complaint: SORE THROAT/ABD PAIN SENT FROM URGENT CARE Chief Complaint: Female Abdominal Pain Nursing Notes Reviewed: Yes Allergies: Coded Allergies: iodine (Verified Allergy, Severe, ITCHING, 03/30/17) ITCHY naproxen (Verified Allergy, Severe, SPASMS, 03/30/17) quinine (Verified Allergy, Severe, "HEMORRHAGING", 03/30/17) INCREASED BLEEDING celecoxib (Verified Allergy, Unknown, diarrhea, 03/30/17) gabapentin (Verified Allergy, Unknown, SPASM, 03/30/17) lorazepam (Verified Allergy, Unknown, UNKNOWN, 03/30/17) oxybutynin (Verified Allergy, Unknown, blurred vision, 03/30/17) primidone (Verified Allergy, Unknown, UNKNOWN, 03/30/17) Uncoded Allergies: ALENDRONATE (Allergy, Severe, THROAT SWELLING, 09/10/16) OXYBUTNIN (Allergy, Unknown, 09/24/16) Scheduled ([vitamin b6]) 100 MG DAILY Acyclovir (Acyclovir) 800 Mg Tab 800 MG PO BID Calcium Citrate/Vitamin D3 (Calcium Cit-Vit D 250-200 Tab) 1 Each Tablet 2 EACH PO DAILY Cyclosporine (Restasis Multidose) 0.05 % Drops 5.5 ML OP Q12H Ferrous Gluconate (Ferrous Gluconate) 240 Mg Tablet 480 MG PO TID Folic Acid (Folic Acid) 1 Mg Tablet 1 MG PO DAILY Glucosamine Sulfate 2Kcl (Glucosamine Sulfate) 1,000 Mg Capsule 1,000 MG PO DAILY Hydroxychloroquine Sulfate (Hydroxychloroquine Sulfate) 200 Mg Tablet 400 MG PO DAILY Melatonin (Melatonin 1 mg Tablet) 1 Each Tablet 1 MG PO HS Mirtazapine (Mirtazapine) 15 Mg Tablet 7.5 MG PO HS Pentosan Polysulfate Sodium (Elmiron) 100 Mg Capsule 100 MG PO TID Propranolol HCl (Propranolol HCl) 10 Mg Tablet 10 MG PO BID Sulfasalazine (Sulfasalazine) 500 Mg Tablet 1,000 MG PO BID Vit B Comp/C/FA/Iron/Vit E (Vitamin B Complex Tablet) 1 Each Tablet 1 EACH PO DAILY Scheduled PRN oxyCODONE-Acetaminophen 5-325 mg (oxyCODONE-Acetaminophen 5-325 mg) 1 Each Tablet 1 TAB PO Q6 PRN PRN For Pain General Time Seen by MD: 12:52 Chief Complaint Abdominal pain, Other (sore throat) Hx Obtained From: Patient Sudden in Onset?: No Past Medical History Past Medical History Raynaud's Phenomenon Esophageal stricture Denies: Asthma, Diabetes mellitus Past Surgical History Interstitial cyst removed EGD Reports: Appendectomy, Hysterectomy Family History Noncontributory Smoking History Never Smoker Social History Alcohol Use: Denies alcohol use Other Social History: Good social support, , Local resident Occupation lives by self, 1 story house. some help from [employer] for 4 hours a week Son and daughter in law live right next door. 03/30/2017 Ambulatory Status Independent Review of Systems Basic Review of Systems Eyes: Vision NL, No discharge Skin: No bruising, No rash, No itch Psychiatric: Normal thought content Physical Exam Vital Signs Vital Signs (First) Date Time Temp Pulse Resp B/P Pulse Ox O2 Delivery O2 Flow Rate FiO2 03/30/17 12:39 37.0 72 16 157/68 96 Room Air Initial VS: Reviewed, Vital signs normal Head / Eyes: Atraumatic, Normocephalic, PERRL ENT: Mucous membranes moist, Conjunctiva normal, No scleral icterus Neck: Supple, Non-tender, Full range of motion Lymphatic: No lymphadenopathy Extremities: Vascular intact, Neuro intact, No swelling, No tenderness Skin: Warm, Dry, No cyanosis Neurologic: Alert, Oriented, Nonfocal Psychiatric: Mood/affect normal, Behavior normal, Normal thought content General/Constitutional: Awake, Alert, No acute distress, Cooperative Appearance / Presentation: Positive: Appears older than age, Cachectic, Frail, Underweight Respiratory / Chest: Atraumatic, Breath sounds NL, Breath sounds = bilat, No respiratory distress, No rales, No rhonchi, No wheezing Cardiovascular: Heart rate NL, Regular rhythm, Heart sounds NL, No gallop, No murmurs, No rubs, Cap refill not delayed pain is located on the right mid clavicular line. Abdomen is non tender but area of pain is point tender to palpation. No rash noted. No skin disruption noted. Back: Atraumatic, Inspection NL, Full range of motion Head / Eyes: Atraumatic, Normocephalic, PERRL, EOMI ENT: Atraumatic, Airway patent, Mucous membranes moist, Pharynx NL Interpretation & Diagnostics Lab Results Interpretation Result Diagram: 03/30/17 1310 03/30/17 1310 Test 03/30/17 13:10 03/30/17 14:05 White Blood Count 4.8th/mm3 (3.8-10.1) Red Blood Count 2.83mil/mm3 (3.90-5.20) Hemoglobin 9.8g/dL (12.0-15.6) Hematocrit 28.9% (35.0-46.0) Mean Corpuscular Volume 102.1fL (81-100) Mean Corpuscular Hemoglobin 34.6pg (27.0-35.0) Mean Corpuscular Hemoglobin Concent 33.9% (32.0-37.0) Red Cell Distribution Width 13.6% (12.3-15.4) Platelet Count 153bil/L (150-400) Neutrophils (%) (Auto) 67.4% (40-74) Lymphocytes (%) (Auto) 14.9% (14-46) Monocytes (%) (Auto) 16.9% (4-12) Eosinophils (%) (Auto) 0.4% (0-5) Basophils (%) (Auto) 0.4% (0-3) Sodium Level 131mEq/L (134-144) Potassium Level 4.1mEq/L (3.5-5.2) Chloride Level 95mEq/L (97-108) Carbon Dioxide Level 22mmol/L (18-29) Blood Urea Nitrogen 16mg/dL (8-27) Creatinine 0.73mg/dL (0.57-1.00) Estimat Glomerular Filtration Rate 108mL/min (>59) Glucose Level 102mg/dL (60-99) Lactic Acid Level 0.8mmol/L (0.4-2.0) Calcium Level 8.5mg/dL (8.5-10.1) Total Bilirubin 0.2mg/dL (0.0-1.2) Aspartate Amino Transf (AST/SGOT) 24U/L (0-50) Alanine Aminotransferase (ALT/SGPT) 13U/L (0-32) Alkaline Phosphatase 58U/L (25-165) Troponin T < 0.010ug/L (0.0-0.011) Pro-B-Type Natriuretic Peptide 1576pg/mL (0-738) Total Protein 6.5g/dL (6.4-8.4) Albumin 3.7g/dL (3.4-5.0) Urine Color Yellow (YELLOW) Urine Appearance Hazy (CLEAR,HAZY) Urine pH 6.0 (5.0-8.0) Urine Specific [place] 1.010 (1.003-1.035) Urine Protein Negativemg/dL (NEG,TRACE) Urine Glucose (UA) Negativemg/dL (NEGATIVE) Urine Ketones Negativemg/dL (NEGATIVE) Urine Occult Blood Negative (NEGATIVE) Urine Nitrite Negative (NEGATIVE) Urine Bilirubin Negative (NEGATIVE) Urine Urobilinogen Normalmg/dL (NORMAL) Urine Leukocyte Esterase Negative (NEGATIVE) Urine RBC 0-2/hpf (0-2) Urine WBC 0-5/hpf (0-5) Urine Epithelial Cells Occasional/hpf (NONE-MOD) Urine Crystals None seen (NONE SEEN) Urine Bacteria None/hpf (NONE-FEW) Urine Hyaline Casts None/lpf (NONE) Urine Granular Casts None seen (NONE SEEN) Urine Waxy Casts None seen (NONE SEEN) Urine Red Blood Cell Casts None seen (NONE SEEN) Urine White Blood Cell Casts None seen (NONE SEEN) Urine Mucus None seen (None Seen) Urine Trichomonas None seen (NONE SEEN) Urine Yeast None (NONE SEEN) Urinalysis Comment None Urine Culture Reflexed Not indicated X-Ray Chest Interpretation Chest Xray Interpretation: PROCEDURE: X-RAY CHEST ONE VIEW ([id number]) INDICATIONS: 87 year-old female with right abdominal pain. TECHNIQUE: One view of the chest was acquired. COMPARISON: [facility], CR, XR CHEST 2VW, 09/06/2016, 16:12. [facility], CR, XR CHEST 1VW (PORTABLE), 08/14/2016, 12:33. FINDINGS: Surgical changes and devices: None. Lungs and pleura: No pleural effusions or pneumothorax. An ill-defined opacity is now apparent in the medial right upper lung. Mediastinum: Mediastinal contours appear normal. Heart size is normal. Bones and chest wall: No suspicious bony lesions. Overlying soft tissues appear unremarkable. IMPRESSION: Newly apparent ill-defined opacity within the medial right upper lung may simply represent prominent costochondral junction; however, underlying lung mass cannot be excluded. If finding persists on a short-term followup 2 view chest, then recommend further evaluation with noncontrast chest CT. Dictated by: Mars Erickson M.D. on 03/30/2017 at 13:36 Approved by: Mars Erickson M.D. on 03/30/2017 at 13:38 CT Abd / Pelvis Interpretation PROCEDURE: CT ABDOMEN AND PELVIS WITHOUT CONTRAST ([id number]) INDICATIONS: 87 year-old female with abdominal pain. TECHNIQUE: Intravenous contrast was not administered, due to patient's allergy to iodine contrast. Noncontrast 5 mm thick sections acquired from the diaphragms to the symphysis. 5 mm coronal and sagittal reformats were performed. For radiation dose reduction, the following was used: automated exposure control, adjustment of mA and/or kV according to patient size. COMPARISON: [facility], CT, ABD/PELVIS W/O CON (PNL), 03/04/2011, 13:22. FINDINGS: Image quality: Excellent. ABDOMEN: Lung bases: Lung bases are clear except for anterior lingular scarring. Heart size is normal. Solid organs: Liver and spleen are normal in size. Gallbladder wall thickness is normal. Pancreas is normal in size. No adrenal nodules. Both kidneys are normal in size, without hydronephrosis or nephrolithiasis. Peritoneum and bowel: Nonopacified bowel loops demonstrate normal wall thickness and caliber. There is mild sigmoid colon diverticulosis. The appendix is unable to be visualized. No free fluid or air. Nodes and vessels: No retroperitoneal or mesenteric adenopathy by size criteria. Aorta and inferior vena cava are normal in size, with scattered aortoiliac atherosclerosis. Miscellaneous: No ventral hernias. PELVIS: Genitourinary: Bladder wall thickness is normal. The uterus is surgically absent. Postmenopausal ovaries are not seen, and may be atrophic or surgically absent. Miscellaneous: No inguinal hernias or adenopathy. Bones: No suspicious bony lesions. There is nonacute healed fracture deformity of the left parasymphyseal region, as well as the posterior right 10th rib. No vertebral body compression fractures. IMPRESSION: 1. No imaging explanation for abdominal pain. The appendix is unable to be identified in the absence of oral contrast. 2. Nonacute healed left parasymphyseal fracture deformity, as well as posterior right 10th rib fracture. 3. Mild sigmoid colon diverticulosis. Dictated by: Mars Erickson M.D. on 03/30/2017 at 13:48 Approved by: Mars Erickson M.D. on 03/30/2017 at 13:58 Re-Eval/Medical Decision Med Decision/Clinical Course 87 year old female presents to the ER for evualation of right side pain and throat and mouth pain. Patient seen at Urgent care and rapid strep is negative. Oral exam indicates a grouping of sores on the outside of her left upper lip. Lesions are noted on her tongue, posterior pharynx and inner check. Chest x-ray indicates a new opacity in the left upper lobe, recommend short interval for repeat x-ray. CT indicates right rib fracture. No sign of abscess formation or pathology concerning for immediate surgery is indicated. Patient is able to eat and drink without difficulty. Discussed with family. Discharge & Departure Primary Impression: Herpes infection Additional Impressions: Rib fracture Encounter type: initial encounter Rib fracture type: single rib Fracture type: closed Laterality: right Qualified Code: S22.31XA - Fracture of one rib, right side, initial encounter for closed fracture Opacity of lung on imaging study Disposition: Home Patient Instructions: Oral Herpes Simplex Virus Infections (ED), Rib Fracture ( ED) Additional Instructions: Oral exam indicates herpes infection in your mouth. You have sores on your tongue, your outer lip, inner checks and the posterior pharynx. Magic mouth wash is very helpful at reducing the pain and decreasing the severity of the symptoms. You can use this 3 times a day. The CT also shows a 10th rib fracture on the right. This likely is what is causing your pain. You can use 1/2 of a hydrocodone up to 2 times a day as needed for severe pain. The chest x-ray also shows a new opacity in the medial right upper lung. When you see Dr. Baker next week, a repeat chest x-ray will be ordered. If it is still present the next step would likely be be a non contrast chest CT. Please keep the appointment as scheduled and discuss this finding with him. Push soft foods, jello, pudding, apple sauce, yogurt ice cream are all good options. Referrals: Hazel Baker MD EDSupervising Provider for APC: Wilfredo Romero MD copies to: Hazel Baker MD, Sue ARNP Mar 30, 2017 12:53
[2017-03-30] MEDS ORDERED: LidocaineVisc 2%:Antacid 1:1 10 mL Syringe PO ONE (13:05)
[2017-03-30] MEDS ORDERED: 0.9% Sodium Chloride 1,000 ML IV ONE (13:05)
[2017-03-30] MEDS ORDERED: HYDROmorphone 0.5 mg/0.5 mL iSecure Syringe IVPUSH ONE (13:05)
[2017-03-30 13:28] LABS: BASOPHILS % (AUTO) 0.4 % (0-3); EOSINOPHILS % (AUTO) 0.4 % (0-5); MONOCYTES % (AUTO) 16.9 % (4-12); Mean Corpuscular Hemoglobin 34.6 pg (27.0-35.0); Mean Corpuscular Volume 102.1 fL (81-100); NEUTROPHILS % (AUTO) 67.4 % (40-74); Platelet Count 153 bil/L (150-400)
[2017-03-30] MEDS ORDERED: SODIUM CHLORIDE 0.9% IV STA (13:49)
[2017-03-30] MEDS ORDERED: ACYCLOVIR IV STA (13:49)
[2017-03-30 13:52] LABS: TROPONIN T < 0.010 ug/L (0.0-0.011)
[2017-03-30] MEDS ORDERED: SODIUM CHLORIDE 0.9% IV ONE ×2 (13:55→16:30)
[2017-03-30] MEDS ORDERED: ACYCLOVIR IV ONE ×2 (13:55→16:30)
[2017-03-30 14:21] LABS: APPEARANCE,URINE HAZY (CLEAR,HAZY); COLOR,URINE YELLOW (YELLOW)
[2017-03-30 14:22] LABS: OCCULT BLOOD,URINE NEGATIVE (NEGATIVE); UROBILINOGEN,URINE NORMAL (NORMAL)
--- NOTE | 2017-03-30 16:25 | DRSVH ---
PROCEDURE: X-RAY CHEST ONE VIEW ([id number]) INDICATIONS: 87 year-old female with right abdominal pain. TECHNIQUE: One view of the chest was acquired. COMPARISON: [facility], CR, XR CHEST 2VW, 09/06/2016, 16:12. [facility], CR, XR CHEST 1VW (PORTABLE), 08/14/2016, 12:33. FINDINGS: Surgical changes and devices: None. Lungs and pleura: No pleural effusions or pneumothorax. An ill-defined opacity is now apparent in th e medial right upper lung. Mediastinum: Mediastinal contours appear normal. Heart size is normal. Bones and chest wall: No suspicious bony lesions. Overlying soft tissues appear unremarkable. IMPRESSION: Newly apparent ill-defined opacity within the medial right upper lung may simply represen t prominent costochondral junction; however, underlying lung mass cannot be excluded. If finding pers ists on a short-term followup 2 view chest, then recommend further evaluation with noncontrast chest CT. Dictated by: Mars Erickson M.D. on 03/30/2017 at 13:36 Approved by: Mars Erickson M.D. on 03/30/2017 at 13:38
--- NOTE | 2017-03-30 16:26 | DRSVH ---
PROCEDURE: CT ABDOMEN AND PELVIS WITHOUT CONTRAST ([id number]) INDICATIONS: 87 year-old female with abdominal pain. TECHNIQUE: Intravenous contrast was not administered, due to patient's allergy to iodine contrast. Noncontrast 5 mm thick sections acquired from the diaphragms to the symphysis. 5 mm coronal and sagittal reformat s were performed. For radiation dose reduction, the following was used: automated exposure control, adjustment of mA and/or kV according to patient size. COMPARISON: [facility], CT, ABD/PELVIS W/O CON (PNL), 03/04/2011, 13:22. FINDINGS: Image quality: Excellent. ABDOMEN: Lung bases: Lung bases are clear except for anterior lingular scarring. Heart size is normal. Solid organs: Liver and spleen are normal in size. Gallbladder wall thickness is normal. Pancreas is normal in size. No adrenal nodules. Both kidneys are normal in size, without hydronephrosis or n ephrolithiasis. Peritoneum and bowel: Nonopacified bowel loops demonstrate normal wall thickness and caliber. There is mild sigmoid colon diverticulosis. The appendix is unable to be visualized. No free fluid or air. Nodes and vessels: No retroperitoneal or mesenteric adenopathy by size criteria. Aorta and inferior vena cava are normal in size, with scattered aortoiliac atherosclerosis. Miscellaneous: No ventral hernias. PELVIS: Genitourinary: Bladder wall thickness is normal. The uterus is surgically absent. Postmenopausal ov carlos are not seen, and may be atrophic or surgically absent. Miscellaneous: No inguinal hernias or adenopathy. Bones: No suspicious bony lesions. There is nonacute healed fracture deformity of the left parasymp hyseal region, as well as the posterior right 10th rib. No vertebral body compression fractures. IMPRESSION: 1. No imaging explanation for abdominal pain. The appendix is unable to be identified in the absence of oral contrast. 2. Nonacute healed left parasymphyseal fracture deformity, as well as posterior right 10th rib fractu re. 3. Mild sigmoid colon diverticulosis. Dictated by: Mars Erickson M.D. on 03/30/2017 at 13:48 Approved by: Mars Erickson M.D. on 03/30/2017 at 13:58
[2017-03-30 17:25] VITALS: BP 140/71; PULSE 74; RESP 20; O2SAT 96
== END 2017-03-30 17:25 | disposition home or self-care (01) ==
LOC: SED 12:33
DX: S22.31XA Fracture of one rib, right side, initial encounter for closed fracture (principal); B00.1 Herpesviral vesicular dermatitis; R91.8 Other nonspecific abnormal finding of lung field; X58.XXXA Exposure to other specified factors, initial encounter; Y93.9 Activity, unspecified; Y99.8 Other external cause status; Y92.9 Unspecified place or not applicable; I73.00 Raynaud's syndrome without gangrene; Z90.89 Acquired absence of other organs; Z88.5 Allergy status to narcotic agent; Z88.8 Allergy status to other drugs, medicaments and biological substances
CPT/HCPCS: 36415; 71010; 74176; 80053; 81000; 81002; 83605; 83880; 84484; 85025; 87880; 93005; 96361; 96365; 96375; 99285; G0463; J0133; J7030